=== PATIENT | female | born 1960 | race Caucasian/White ===

== ENCOUNTER 2017-08-27 17:56 | Inpatient (IN) | payer BC ==
[~2017-08-27] VITALS: Ht 177.8 cm; Wt 75.9 kg
--- NOTE | 2017-08-27 18:02 | ED.ADGEN ---
Past History Past Medical History: Bronchitis Past Surgical History: No Surgical History Alcohol Use: None Drug Use: None Adult General Chief Complaint Chief Complaint ".. My back just got all painful the last couple days... I seen Dr. Carr... and she did a couple adjustments.. but it is not any better....".." The pain seems to run down my Rt. ...leg.".. " I really started two weeks ago when I was mowing the yard...".. " I ve also had some interment episodes of chest pain this past week or so..." HPI HPI Patient is a 56 year old female who presents with above hx and complaints of back pain and CP. Chest pain has been interment and usually sharp. Not prolonged. Back Pain seems to be mostly located in Rt. Lumbar L 4,5, Sl area. DTR + 2, to 3 in Rt. leg. Pain does follow the sciatica nerve on Rt. to level of knee. Pt. reports increased discomfort after the two chiropractor adjustments. Pt. denies immunosuppression, specific trauma, fevers or chills, IV drug use, specific ill contacts or out of country travel. Patient denies any problems with defecation or urination. Does have a gait disorder on right due to her pain. Straight leg lift on right exacerbates her pain. Patient rates her pain as moderately severe. Review of Systems Review of Systems Constitutional: Denies fever or chills [] Eyes: Denies change in visual acuity, redness, or eye pain [] HENT: Denies nasal congestion or sore throat [] Respiratory: Denies cough or shortness of breath [] Cardiovascular: No additional information not addressed in HPI [] GI: Denies abdominal pain, nausea, vomiting, bloody stools or diarrhea [] : Denies dysuria or hematuria [] Musculoskeletal: Complaints of back pain . Integument: Denies rash or skin lesions [] Neurologic: Denies headache, focal weakness or sensory changes [] Endocrine: Denies polyuria or polydipsia [] All other systems were reviewed and found to be within normal limits, except as documented in this note. Family History Family History Noncontributory Current Medications Current Medications Current Medications Medications (Trade) Dose Ordered Sig/Bianca Start Time Stop Time Status Last Admin Dose Admin Aspirin (Javid Aspirin) 325 mg 1X ONCE 08/27/17 21:45 08/27/17 22:00 DC 08/27/17 22:21 325 MG Enoxaparin Sodium (Lovenox 80mg Syringe) 80 mg 1X ONCE 08/27/17 21:45 08/27/17 22:00 DC 08/27/17 22:21 80 MG Info (Do NOT chart on this entry -- for MONITORING) 1 each PRN DAILY PRN 08/27/17 20:45 08/29/17 20:44 Iohexol (Omnipaque 300 Mg/ml) 75 ml 1X ONCE 08/27/17 21:00 08/27/17 21:01 DC 08/27/17 21:13 75 ML Ketorolac Tromethamine (Toradol) 60 mg 1X ONCE 08/27/17 19:00 08/27/17 19:01 DC 08/27/17 18:44 60 MG Lactated Ringer's 1,000 ml @ 100 mls/hr Q10H 08/27/17 20:30 08/28/17 06:29 DC 08/27/17 22:21 100 MLS/HR Methylprednisolone Acetate (DEPO-Medrol IM) 40 mg 1X ONCE 08/27/17 19:00 08/27/17 19:01 DC 08/27/17 18:44 40 MG Morphine Sulfate (Morphine 10mg Syringe) 10 mg 1X ONCE 08/27/17 19:00 08/27/17 19:01 DC 08/27/17 18:43 10 MG Morphine Sulfate (Morphine 2mg Syringe) 2 mg PRN Q2HR PRN 08/27/17 22:00 08/28/17 04:59 DC Nicotine (Nicoderm Cq 21mg) 1 patch 1X ONCE 08/27/17 22:30 08/27/17 22:34 DC 08/27/17 22:49 1 PATCH Nitroglycerin (Nitro-Bid Oint) 1 inch 1X ONCE 08/27/17 21:45 08/27/17 22:01 DC 08/27/17 22:22 1 INCH Orphenadrine Citrate (Norflex) 60 mg 1X ONCE 08/27/17 19:00 08/27/17 19:01 DC 08/27/17 18:43 60 MG See nursing for home meds- has been taking excessive doses of ibuprofen Allergies Allergies Allergies Coded Allergies Type Severity Reaction Last Updated Verified No Known Drug Allergies 08/27/17 No Physical Exam Physical Exam Constitutional: Moderately acute distress, non-toxic appearance. [] HENT: Normocephalic, atraumatic, bilateral external ears normal, oropharynx moist, no oral exudates, nose normal. [] Eyes: PERRLA, EOMI, conjunctiva normal, no discharge. [] Neck: Normal range of motion, no tenderness, supple, no stridor. [] Cardiovascular:Bradycardia Heart rate regular rhythm, no murmur [] Lungs & Thorax: Bilateral breath sounds at apex with scattered wheezes on auscultation [] Abdomen: Bowel sounds normal, soft, no tenderness, no masses, no pulsatile masses. [] Skin: Warm, dry, no erythema, no rash. [] Back: No tenderness, no CVA tenderness. Except findings as per history of present illness Extremities: No tenderness, no cyanosis, no clubbing, ROM intact, no edema. [] Neurologic: Alert and oriented X 3, normal motor function, normal sensory function, no focal deficits noted. []Except findings as per history of present illness Psychologic: Affect normal, judgement normal, mood normal. [] Current Patient Data Vital Signs Vital Signs Date Time Temp Pulse Resp B/P (MAP) Pulse Ox O2 Delivery O2 Flow Rate FiO2 08/27/17 23:00 59 16 143/55 (84) 97 Room Air 08/27/17 18:00 98.2 Lab Results Laboratory Tests Test 08/27/17 18:05 08/27/17 20:56 Urine Collection Type Unknown Urine Color Yellow Urine Clarity Clear Urine pH 6.0 Urine Specific [place] 1.010 Urine Protein Neg (NEG-TRACE) Urine Glucose (UA) Neg mg/dL (NEG) Urine Ketones (Stick) Neg mg/dL (NEG) Urine Blood Neg (NEG) Urine Nitrite Neg (NEG) Urine Bilirubin Neg (NEG) Urine Urobilinogen Dipstick 0.2 mg/dL (0.2 mg/dL) Urine Leukocyte Esterase Neg (NEG) Urine RBC 0 /HPF (0-2) Urine WBC Occ /HPF (0-4) Urine Squamous Epithelial Cells Occ /LPF Urine Transitional Epithelial Cells Occ /LPF Urine Bacteria 0 /HPF (0-FEW) Urine Mucus Mod /LPF White Blood Count 9.1 x10^3/uL (4.0-11.0) Red Blood Count 5.57 x10^6/uL (3.50-5.40) H Hemoglobin 14.2 g/dL (12.0-15.5) Hematocrit 43.7 % (36.0-47.0) Mean Corpuscular Volume 78 fL (79-100) L Mean Corpuscular Hemoglobin 26 pg (25-35) Mean Corpuscular Hemoglobin Concent 33 g/dL (31-37) Red Cell Distribution Width 15.1 % (11.5-14.5) H Platelet Count 269 x10^3/uL (140-400) Neutrophils (%) (Auto) 65 % (31-73) Lymphocytes (%) (Auto) 23 % (24-48) L Monocytes (%) (Auto) 6 % (0-9) Eosinophils (%) (Auto) 4 % (0-3) H Basophils (%) (Auto) 2 % (0-3) Neutrophils # (Auto) 5.9 x10^3uL (1.8-7.7) Lymphocytes # (Auto) 2.1 x10^3/uL (1.0-4.8) Monocytes # (Auto) 0.6 x10^3/uL (0.0-1.1) Eosinophils # (Auto) 0.3 x10^3/uL (0.0-0.7) Basophils # (Auto) 0.2 x10^3/uL (0.0-0.2) Prothrombin Time 10.4 SEC (9.4-11.4) Prothrombin Time INR 1.0 (0.9-1.1) PTT 26 SEC (23-33) D-Dimer (Jemma) 0.83 mg/L (0.00-0.50) H Sodium Level 139 mmol/L (136-145) Potassium Level 3.9 mmol/L (3.5-5.1) Chloride Level 104 mmol/L (98-107) Carbon Dioxide Level 26 mmol/L (21-32) Anion Gap 9 (6-14) Blood Urea Nitrogen 11 mg/dL (7-20) Creatinine 0.8 mg/dL (0.6-1.0) Estimated GFR (Cockcroft-Gault) 73.9 Glucose Level 150 mg/dL (70-99) H Calcium Level 8.4 mg/dL (8.5-10.1) L Magnesium Level 2.2 mg/dL (1.8-2.4) Total Bilirubin 0.4 mg/dL (0.2-1.0) Direct Bilirubin 0.1 mg/dL (0.0-0.2) Aspartate Amino Transferase (AST) 13 U/L (15-37) L Alanine Aminotransferase (ALT) 14 U/L (14-59) Alkaline Phosphatase 106 U/L (46-116) Creatine Kinase 68 U/L (26-192) Creatine Kinase MB (Mass) 0.5 ng/mL (0.0-3.6) Creatine Kinase MB Relative Index 0.7 % (0-4) Troponin I Quantitative 0.066 ng/mL (0-0.055) H PN-Gys-R-Type Natriuretic Peptide 589 pg/mL (0-124) H Total Protein 7.0 g/dL (6.4-8.2) Albumin 3.3 g/dL (3.4-5.0) L Lipase 458 U/L (73-393) H EKG EKG My interpretation EKG shows a bradycardic sinus rhythm[] at a rate of 58 bpm. There is some nonspecific anterior lateral changes. No findings acute STEMI of contralateral changes. Radiology/Procedures Radiology/Procedures My interpretation of chest x-ray shows increased cephalization. Some nonspecific atelectasis/elevation left diaphragm. Pleural fluid and infiltrate. On left. [] CT of chest pending at time of admission. Course & Med Decision Making Course & Med Decision Making Pertinent Labs and Imaging studies reviewed. (See chart for details) Discussed presentation, testing and treatment plan with will admit with Consult Cardiology. [] Final Impression Final Impression 1. Back Pain[] 2. Sciatica-right 3. Tobacco use 4. Chest pain 5. Elevated lipase 6. Elevated troponin 7. Elevated d-dimer. 8. CHF elevated BNP 9. Diabetes-glucose 150 Dragon Disclaimer Dragon Disclaimer This electronic medical record was generated, in whole or in part, using a voice recognition dictation system. DARRYL SHEPHERD MD Aug 27, 2017 18:02
[2017-08-27] MEDS ORDERED: sertraline (18:23)
[2017-08-27] MEDS ORDERED: omeprazole (18:24)
[2017-08-27] MEDS ORDERED: atorvastatin (18:24)
[2017-08-27] MEDS ORDERED: methylPREDNISolone ACETATE 40 MG/ML VIAL. IM ONE (19:00)
[2017-08-27] MEDS ORDERED: MORPHINE SULFATE 10 MG/ML SYRINGE. SQ ONE (19:00)
[2017-08-27] MEDS ORDERED: KETOROLAC 60 MG/2 ML VIAL. IM ONE (19:00)
[2017-08-27] MEDS ORDERED: ORPHENADRINE CITRATE 60 MG/2 ML VIAL. IM ONE (19:00)
--- NOTE | 2017-08-27 20:03 | RAD ---
CT of the lumbar spine without contrast, 08/27/2017: HISTORY: Low back pain Noncontrast scans were obtained with multiplanar reconstructions produced. No fracture or dislocation is identified. There are mild posterior disc bulges at L3-4, L4-5 and L5-S1. No disc herniation or significant spinal stenosis is evident. Moderate aortoiliac calcific plaquing is present. Incidental note is made of left-sided pleural fluid. A tiny left renal calcification is noted. IMPRESSION: 1. Mild scattered disc bulges in the lower lumbar spine. 2. No acute lumbar spine abnormality is detected. 3. Left pleural effusion Electronically signed by: Cecil Pace MD (08/27/2017 7:59 PM) [facility]
[2017-08-27] MEDS ORDERED: IV RINGERS SOLUTION,LACTATED 1,000 ML IV SCH (20:30)
[2017-08-27] MEDS ORDERED: CONTRAST GIVEN MC PRN (20:45)
[2017-08-27] MEDS ORDERED: IOHEXOL 300 MG/ML 75 ML VIAL. IV ONE (21:00)
[2017-08-27 21:15] LABS: BASO # 0.2 x10^3/uL (0.0-0.2); BASO % 2 % (0-3); EOS # 0.3 x10^3/uL (0.0-0.7); EOS % 4 % (0-3); HEMATOCRIT 43.7 % (36.0-47.0); HEMOGLOBIN 14.2 g/dL (12.0-15.5); LYMPH # 2.1 x10^3/uL (1.0-4.8); LYMPH % 23 % (24-48); MEAN CORPUSCULAR HEMOGLOBIN 26 pg (25-35); MEAN CORPUSCULAR HGB CONC 33 g/dL (31-37); MEAN CORPUSCULAR VOLUME 78 fL (79-100); MONO # 0.6 x10^3/uL (0.0-1.1); MONO % 6 % (0-9); NEUT # 5.9 x10^3uL (1.8-7.7); NEUT % 65 % (31-73); PLATELET COUNT 269 x10^3/uL (140-400); RED BLOOD COUNT 5.57 x10^6/uL (3.50-5.40); RED CELL DISTRIBUTION WIDTH 15.1 % (11.5-14.5); WHITE BLOOD COUNT 9.1 x10^3/uL (4.0-11.0)
[2017-08-27 21:38] LABS: ALBUMIN 3.3 g/dL (3.4-5.0); CALCIUM 8.4 mg/dL (8.5-10.1); CREATININE 0.8 mg/dL (0.6-1.0); DIRECT BILIRUBIN 0.1 mg/dL (0.0-0.2); GFR 73.9; MAGNESIUM 2.2 mg/dL (1.8-2.4); POTASSIUM 3.9 mmol/L (3.5-5.1); TOTAL BILIRUBIN 0.4 mg/dL (0.2-1.0)
[2017-08-27] MEDS ORDERED: NITROGLYCERIN OINT 1 GM PACKET. TP ONE (21:45)
[2017-08-27] MEDS ORDERED: ENOXAPARIN ** NOTE DOSE ** SYRINGE SQ ONE (21:45)
[2017-08-27] MEDS ORDERED: ASPIRIN 325 MG TABLET PO ONE (21:45)
--- NOTE | 2017-08-27 21:56 | RAD ---
CTA chest with contrast Indication: Omni 300, 75ml IV. Chest pain, smoker x30+ years. No injury or surgery . Comparison: No comparison is available. Technique: After intravenous contrast administration, CT imaging was performed of the chest. MIP reconstructions were obtained. Exposure: One or more of the following individualized dose reduction techniques were utilized for this examination: 1. Automated exposure control 2. Adjustment of the mA and/or kV according to patient size 3. Use of iterative reconstruction technique. FINDINGS: Pulmonary arteries:No evidence of pulmonary embolism. Thoracic aorta: Mildly calcified, no aneurysm. No evidence of dissection. Thyroid gland:Visualized aspect is unremarkable. Lymph nodes:No significant enlargement Heart: Mild coronary artery calcifications Esophagus: Unremarkable Pleural spaces: Small left pleural effusion. Lungs: Linear markings in the left upper lobe and lingula, likely atelectasis. No dense airspace consolidating infiltrate. Mild atelectasis or infiltrate in the dependent left lower lobe as well. Mild emphysematous changes are seen. Trachea and central airways: Patent Bones: Degenerative spondylosis Upper abdomen: Slices through the upper abdomen are limited due to the technique . There is reflux of contrast into the hepatic veins and inferior vena cava, could indicate right heart strain. IMPRESSION: 1. Mild atelectasis or infiltrate in the left lung. 2. No evidence of pulmonary embolism. Electronically signed by: Balaji Baker MD (08/27/2017 9:53 PM) [facility]
[2017-08-27] MEDS ORDERED: MORPHINE SULFATE 2 MG/ML DISP.SYRIN. IV PRN (22:00)
[2017-08-27 22:24] LABS: BACTERIA,URINE 0 /HPF (0-FEW); BILIRUBIN,URINE NEG (NEG); CLARITY,URINE CLEAR; COLOR,URINE YELLOW; GLUCOSE,URINE NEG (NEG); NITRITE,URINE NEG (NEG); RBC,URINE 0 /HPF (0-2); SQUAMOUS EPITHELIAL CELL,UR OCC /LPF; UROBILINOGEN,URINE 0.2 mg/dL (0.2 mg/dL); WBC,URINE OCC /HPF (0-4)
[2017-08-27] MEDS ORDERED: NICOTINE 21MG PATCH. TD ONE (22:30)
--- NOTE | 2017-08-27 23:23 | EKG ---
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
[2017-08-27 23:30] VITALS: BP 169/91
--- NOTE | 2017-08-27 23:30 | NUR ---
Pt was admitted from ER to [address] [place] [address] via [facility], accompanied by EMS, nursing staff and . Pt self transferred from [facility] to bed independently, steady gait noted. Admission assessment completed. VSS. Pt placed on Telemetry, SR noted on monitor. Pt here for Sciatic pain symptoms in right hip/leg and chest pain. Pt stated that pain is much improved, rating it a 2/10. Health history and home medications reviewed with pt. Lovenox for VTE. Pt refused pneumonia vaccine. Cardio consulted and with RT for smoking cessation. Pt lives at home with . Pt recently increased her work hours at [employer] from 20 hours to 40 hours per week. Pt was given written information regarding hospital policies, unit procedures and contact persons. Valuables were checked and left at bedside. Pt to have Venous Doppler in am. Call light within reach.
[2017-08-28] MEDS ORDERED: OMEP20CA9 PO (01:12)
[2017-08-28] MEDS ORDERED: SERT100T8 PO (01:12)
[2017-08-28] MEDS ORDERED: ATOR20TA58 PO (01:12)
[2017-08-28] MEDS ORDERED: IBUP200T44 PO (01:12)
[2017-08-28] MEDS: MORPHINE SULFATE 4 MG/ML DISP.SYRIN. IV PRN ×5 (05:03→20:10)
[2017-08-28 05:34] VITALS: BP 154/69
[2017-08-28 07:13] LABS: BASO # 0.1 x10^3/uL (0.0-0.2); BASO % 1 % (0-3); EOS # 0.4 x10^3/uL (0.0-0.7); EOS % 5 % (0-3); HEMATOCRIT 40.2 % (36.0-47.0); HEMOGLOBIN 13.2 g/dL (12.0-15.5); LYMPH # 2.1 x10^3/uL (1.0-4.8); LYMPH % 27 % (24-48); MEAN CORPUSCULAR HEMOGLOBIN 26 pg (25-35); MEAN CORPUSCULAR HGB CONC 33 g/dL (31-37); MEAN CORPUSCULAR VOLUME 79 fL (79-100); MONO # 0.6 x10^3/uL (0.0-1.1); MONO % 7 % (0-9); NEUT # 4.7 x10^3uL (1.8-7.7); NEUT % 60 % (31-73); PLATELET COUNT 219 x10^3/uL (140-400); RED BLOOD COUNT 5.08 x10^6/uL (3.50-5.40); RED CELL DISTRIBUTION WIDTH 15.1 % (11.5-14.5); WHITE BLOOD COUNT 7.8 x10^3/uL (4.0-11.0)
[2017-08-28 07:29] LABS: CALCIUM 8.3 mg/dL (8.5-10.1); CREATININE 0.6 mg/dL (0.6-1.0); POTASSIUM 3.6 mmol/L (3.5-5.1)
--- NOTE | 2017-08-28 08:34 | RAD ---
Chest, 2 views, 08/27/2017: HISTORY: Chest pain, smoking history Comparison is made to a study from 08/22/2011. The heart size and pulmonary vascularity are normal. A small amount of pleural fluid has developed in the left lower chest. There is mild underlying streaky atelectasis in the left base and lingula. The right lung is clear. No right-sided pleural fluid is evident. Mild spurring is present in the spine. IMPRESSION: Small left pleural effusion with mild streaky atelectasis in the left base and lingula. Electronically signed by: Cecil Pace MD (08/28/2017 8:30 AM) [facility]
[2017-08-28] MEDS: ENOXAPARIN ** NOTE DOSE ** SYRINGE SQ SCH ×2 (08:55→20:54)
[2017-08-28] MEDS: NITROGLYCERIN OINT 1 GM PACKET. TP SCH ×3 (08:57→19:50)
[2017-08-28 10:01] LABS: THYROID STIM HORMONE (TSH) 3.694 uIU/mL (0.358-3.740)
[2017-08-28] MEDS: ASPIRIN 81 MG TAB.CHEW PO SCH (10:57)
[2017-08-28 11:00] VITALS: BP 162/72
--- NOTE | 2017-08-28 11:05 | RAD ---
Bilateral lower extremity venous ultrasound, 08/28/2017: History: Elevated d-dimer Duplex evaluation of the deep veins in the lower extremities was performed including grayscale, color-flow and spectral Doppler analysis. The femoral and popliteal veins demonstrate normal compressibility and normal responses to distal augmentation maneuvers. Color imaging of those vessels shows no evidence of intraluminal clot. The visualized deep veins in both calves are patent. IMPRESSION: There is no sonographic evidence of deep vein thrombosis in either lower extremity. Electronically signed by: Cecil Pace MD (08/28/2017 11:02 AM) [facility]
--- NOTE | 2017-08-28 11:10 | RAD ---
Abdominal ultrasound, 08/28/2017: HISTORY: Elevated liver enzymes The gallbladder is of normal size. No gallstones are seen. The gallbladder wall is not thickened. The common hepatic duct is of normal caliber. The liver is at the upper limits of normal in size measuring 18-19 cm in craniocaudad extent. There is no evidence of a hepatic mass. The visualized portions of the pancreas are unremarkable. The spleen is of normal size. A tiny 6 mm echogenic focus is noted laterally in the left kidney. No definite posterior acoustic shadowing is seen. This may be a scar or tiny angiomyolipoma. The kidneys are otherwise unremarkable. The abdominal aorta is of normal caliber. The visualized portions of the inferior vena cava are unremarkable. No free fluid is evident in the abdomen. A small left pleural effusion is noted. IMPRESSION: 1. Borderline hepatomegaly. 2. Tiny echogenic focus in the left kidney which may be a scar or a small angiomyolipoma. 3. Small left pleural effusion. Electronically signed by: Cecil Pace MD (08/28/2017 11:07 AM) [facility]
[2017-08-28 15:29] VITALS: BP 148/73
[2017-08-28] MEDS ORDERED: NICOTINE 21MG PATCH. TD PRN (19:30)
[2017-08-28 19:45] VITALS: BP 156/74
[2017-08-28 23:01] VITALS: BP 155/82
[2017-08-28] MEDS ORDERED: MORPHINE SULFATE 2 MG/ML DISP.SYRIN. IV PRN (23:15)
[2017-08-29] MEDS ORDERED: MORPHINE SULFATE 4 MG/ML DISP.SYRIN. ONE (00:12)
--- NOTE | 2017-08-29 00:57 | HP ---
ADMIT DATE: 08/27/2017 HISTORY OF PRESENT ILLNESS: The patient is a 56-year-old female patient who basically came to the Emergency Room complaining of back pain that has been going on for almost 3 weeks, has worsened over the last 2 days. She has seen chiropractor who did a couple of adjustments, but she is not feeling any better. She stated that her pain is running down her right leg and her pain started about 2 weeks ago when she was mowing her yard. She also complained of intermittent episodes of chest pain in the past week. She was seen in the Emergency Room and evaluated her back pain and chest pain. Apparently, her chest pain is last about 5 minutes, sharp, associated with shortness of breath, but no nausea, no vomiting. The patient also stated that she has lost about unintentionally 50 pounds in weight. She was extensively investigated in the Emergency Room. Her EKG showed that she has sinus bradycardia with a rate of 58. She has nonspecific anterolateral changes, but no evidence of acute ST segment elevation myocardial infarction. Her chest x-ray showed that she has small left pleural effusion with mild streaky atelectasis in the left base in the lingula. As her D-dimer was high, she underwent CT angio of the chest, which basically showed that no evidence of pulmonary embolism, thoracic aorta mildly calcified, no aneurysm, no evidence of dissection, basically showed the patient has mild atelectasis and infiltrate in the left lung, no evidence of pulmonary embolism. Her first set of cardiac enzyme was high at 0.66. She was admitted to do 2 more sets of cardiac enzymes, check her fasting lipid profile and also consult the cardiology team. PAST MEDICAL HISTORY: Significant for hyperlipidemia, osteoarthritis and degenerative disk disease. PAST SURGICAL HISTORY: Significant for hemorrhoidectomy, trigger fingers in her right thumb and colonoscopy. ALLERGIES: She has no known drug allergies. MEDICATIONS: She is on atorvastatin calcium 20 mg at bedtime, ibuprofen 600 mg 3 times a day, sertraline 200 mg daily and omeprazole 20 mg once a day. FAMILY HISTORY: She has 2 sisters younger and healthy. Her father is still alive at age of 73 and has COPD, and mother is alive at age of 72 and she is known to have congestive heart failure and has AICD. SOCIAL HISTORY: She is , has no children. She smokes 2 packs a day, does not drink alcohol. She is retired from [employer] and she now works at [employer]. REVIEW OF SYSTEMS: The patient denied any blurring of vision, cataract, glaucoma or macular degeneration. Denied any earache, tinnitus or sensorineural deafness. Denied any nosebleeds, stuffy nose or postnasal drip. Denied any sore throat, sore tongue, toothache, hoarseness of voice or difficulty swallowing. Denied any nausea, vomiting, diarrhea or constipation. Denied any hematemesis, melena or hematochezia. Denied any dysuria, frequency or hematuria. Did complain of chest pain, shortness of breath, but denied any nausea or vomiting. Denied any diaphoresis, denied any orthopnea or paroxysmal nocturnal dyspnea. Denied any cough, phlegm or hemoptysis. Denied any chills, rigors, or fever. Denied any dizziness, lightheadedness, or vertigo. PHYSICAL EXAMINATION: GENERAL: On arrival to the Emergency Room, she was pale, but no jaundice, cyanosis, or thyromegaly. No jugular venous distention. No limb edema. VITAL SIGNS: Her heart rate was 69, blood pressure 159/88, temperature was 98.2, respiratory rate was 18 and oxygen saturation was 97%. HEAD, EYES, EARS, NOSE AND THROAT: Showed normocephalic, atraumatic. NECK: Supple. HEART: Showed normal first and second sounds. No gallop or murmur. CHEST: Clear to auscultation. No crepitation or rhonchi. ABDOMEN: Distended, soft, nontender. NEUROLOGIC: She was awake, alert. All her cranial nerves intact. EXTREMITIES: She moves upper extremities without difficulty. She has difficulty walking as putting weight on the right lower extremity exacerbates her pain on the right side at the lower lumbar area; however, she denied any problems urinating or retaining urine. Denied any problem with defecation. LABORATORY DATA: While in the Emergency Room, she had lab work done, which includes serum sodium 139, potassium 3.9, chloride 104, bicarbonate 26, anion gap of 9, BUN 11, creatinine 0.8, estimated GFR was 74 mL per minute. Her glucose 150, calcium was 8.4, magnesium was 2.2. Total bilirubin, AST, ALT, alkaline phosphatase were normal. Her beta natriuretic peptide was 589. Total protein 7, albumin was 3.3. Her first set of cardiac enzymes showed troponin to be 0.066. Her serum lipase was 458. Serum triglycerides 168, total cholesterol was 208, LDL was 114, VLDL was 33, non-HDL was 146, and HDL 61 and the ratio was 3. Her white cell count was 9100, hemoglobin 14, hematocrit 44, MCV 78 and platelet count 269,000. Her prothrombin time was 10.4, INR of 1, aPTT was 26. D-dimer was 0.83. Urinalysis showed the urine was yellow, clear with a pH of 6, specific gravity 1.010. The urine was negative for protein, glucose, ketones, blood, nitrite and leukocyte esterase. There are no rbc's, occasional wbc's, and very few bacteria. X-ray of her lumbar spine showed that patient has mild scattered disk bulges in the lower lumbar spine, no acute lumbar spine abnormalities detected. Her chest x-ray showed that the heart size and pulmonary vascularity are normal. There is small left-sided pleural effusion with mild streaky atelectasis in the left base lingula. CT angio of the chest showed that there is no atelectasis or infiltrate in the left lung. No evidence of pulmonary embolism. The bilateral lower extremity venous Doppler ultrasound showed no evidence of deep vein thrombosis. Abdominal ultrasound was done for elevated liver enzymes and showed that she has borderline hepatomegaly, tiny echogenic focus in the left kidney, which may be a scar or small angiomyolipoma. She has also small left-sided pleural effusion. IMPRESSION AND PLAN: In summary, this is a 56-year-old female patient who came in primarily complaining the back pain, but she also complained intermittent chest pain. Her troponin was slightly elevated. She was admitted to do 2 more sets of cardiac enzyme and to check her fasting lipid profile and consult the cardiology team. GLEN LLANES MD DR: BRENNEN/delfino JOB#: [id number] / [id number]
[2017-08-29 06:00] VITALS: BP 160/74
[2017-08-29 06:50] LABS: CALCIUM 8.9 mg/dL (8.5-10.1); CREATININE 0.6 mg/dL (0.6-1.0); POTASSIUM 3.9 mmol/L (3.5-5.1)
[2017-08-29] MEDS: NITROGLYCERIN OINT 1 GM PACKET. TP SCH (09:00)
--- NOTE | 2017-08-29 09:26 | PDOC2 ---
CONSULT Date of Admission DATE: 08/29/17 TIME: 09:23 Reason for Consult: Chest pain, elevated troponin Problem List Problems Medical Problems: (1) Chest pain Status: Acute History of Present Illness Ms Bryan is a 56 year old female who presented to the ED with complaints of low back pain. She states that she had been mowing her grass and thinks she somehow injured her back. Yesterday the pain was severe and she reports inability to get up out of bed so she presented for evaluation. She was noted to have significant blood pressure elevation and mild troponin elevation. she reports several days ago two episodes of chest pain while at work. Pain was right chest, sharp stabbing with associated dyspnea and lasted about 1-2 minutes. Onset was while doing light activity. She denies any prior chest pain. She denies other dyspnea. She denies palpitations, lightheadedness or syncope. She denies problems with functional capacity until the low back pain. Past Medical History Significant for hyperlipidemia, osteoarthritis, GERD and degenerative disk disease. Past Surgical History Significant for hemorrhoidectomy, trigger fingers in her right thumb and colonoscopy. Family History She has 2 sisters younger and healthy. Her father is still alive at age of 73 and has COPD, and mother is alive at age of 72 and she is known to have congestive heart failure and has AICD secondary to VT/VF arrest reportedly due to heart defect. . Social History She is , has no children. She smokes 2 packs a day, does not drink alcohol. She is retired from [employer] and she now works at [employer]. Current Medications Current Medications Ketorolac Tromethamine (Toradol) 60 mg 1X ONCE IM Last administered on at 18:44; Start 08/27/17 at 19:00; Stop 08/27/17 at 19:01; Status DC Orphenadrine Citrate (Norflex) 60 mg 1X ONCE IM Last administered on 08/27/17at 18:43; Start 08/27/17 at 19:00; Stop 08/27/17 at 19:01; Status DC Morphine Sulfate (Morphine 10mg Syringe) 10 mg 1X ONCE SQ Last administered on 08/27/17at 18:43; Start 08/27/17 at 19:00; Stop 08/27/17 at 19:01; Status DC Methylprednisolone Acetate (DEPO-Medrol IM) 40 mg 1X ONCE IM Last administered on 08/27/17at 18:44; Start 08/27/17 at 19:00; Stop 08/27/17 at 19:01; Status DC Lactated Ringer's 1,000 ml @ 100 mls/hr Q10H IV Last administered on 08/27/17at 22:21; Start 08/27/17 at 20:30; Stop 08/28/17 at 06:29; Status DC Iohexol (Omnipaque 300 Mg/ml) 75 ml 1X ONCE IV Last administered on 08/27/17at 21:13; Start 08/27/17 at 21:00; Stop 08/27/17 at 21:01; Status DC Info (Do NOT chart on this entry -- for MONITORING) 1 each PRN DAILY PRN MC SEE COMMENTS; Start 08/27/17 at 20:45; Stop 08/29/17 at 20:44 Enoxaparin Sodium (Lovenox 80mg Syringe) 80 mg 1X ONCE SQ Last administered on 08/27/17at 22:21; Start 08/27/17 at 21:45; Stop 08/27/17 at 22:00; Status DC Aspirin (Javid Aspirin) 325 mg 1X ONCE PO Last administered on 08/27/17at 22:21 ; Start 08/27/17 at 21:45; Stop 08/27/17 at 22:00; Status DC Nitroglycerin (Nitro-Bid Oint) 1 inch 1X ONCE TP Last administered on at 22:22; Start 08/27/17 at 21:45; Stop 08/27/17 at 22:01; Status DC Morphine Sulfate (Morphine 2mg Syringe) 2 mg PRN Q2HR PRN IV PAIN; Start at 22:00; Stop 08/28/17 at 04:59; Status DC Aspirin (Children'S Aspirin) 81 mg DAILY08 PO Last administered on 08/28/17at 10 :57; Start 08/28/17 at 08:00 Enoxaparin Sodium (Lovenox 80mg Syringe) 80 mg BID SQ Last administered on 08/28at 20:54; Start 08/28/17 at 09:00 Nitroglycerin (Nitro-Bid Oint) 1 inch TID TP ; Start 08/28/17 at 09:00 Nicotine (Nicoderm Cq 21mg) 1 patch 1X ONCE TD Last administered on 08/27/17at 22:49; Start 08/27/17 at 22:30; Stop 08/27/17 at 22:34; Status DC Morphine Sulfate (Morphine 4mg Syringe) 2 mg PRN Q2HR PRN IV PAIN Last administered on 08/28/17at 20:10; Start 08/28/17 at 04:59; Stop 08/28/17 at 22:00 ; Status DC Nicotine (Nicoderm Cq 21mg) 1 patch PRN DAILY PRN TD SMOKING CESSATION Last administered on 08/28/17at 20:07; Start 08/28/17 at 19:30 Morphine Sulfate (Morphine 2mg Syringe) 2 mg PRN Q2HR PRN IV PAIN Last administered on 08/29/17at 00:15; Start 08/28/17 at 23:15; Stop 08/29/17 at 00:58 ; Status DC Morphine Sulfate (Morphine 4mg Syringe) 4 mg STK-MED ONCE .ROUTE ; Start at 00:12; Stop 08/29/17 at 00:13; Status DC Morphine Sulfate (Morphine 4mg Syringe) 2 mg PRN Q2HR PRN IV PAIN; Start at 01:00 Active Scripts Active Reported Motrin Ib (Ibuprofen) 200 Mg Tablet 600 Mg PO PRN TID PRN LAST DOSE GIVEN: DATE: TIME: NEXT DOSE DUE: DATE: TIME: Atorvastatin Calcium 20 Mg Tablet 20 Mg PO DAILY LAST DOSE GIVEN: DATE: TIME: NEXT DOSE DUE: DATE: TIME: Omeprazole 20 Mg Capsule.dr 20 Mg PO DAILY LAST DOSE GIVEN: DATE: TIME: NEXT DOSE DUE: DATE: TIME: Sertraline Hcl 100 Mg Tablet 200 Mg PO DAILY LAST DOSE GIVEN: DATE: TIME: NEXT DOSE DUE: DATE: TIME: Allergies: Coded Allergies: No Known Drug Allergies (Unverified , 08/27/17) Review of System as per HPI or negative General: Alert, Oriented X3, Cooperative, No acute distress HEENT: Atraumatic, EOMI, Mucous membr. moist/pink Lungs: Clear to auscultation, Normal air movement Heart: Regular rate, Normal S1, Normal S2, Other (no gallops, clicks or rubs) Abdomen: Normal bowel sounds, Soft, No tenderness Extremities: No cyanosis, No edema, Normal pulses Neuro: Normal speech Psych/Mental Status: Mental status NL, Mood NL VITALS Vital Signs Date Time Temp Pulse Resp B/P (MAP) Pulse Ox O2 Delivery O2 Flow Rate FiO2 08/29/17 06:00 98.1 56 18 160/74 (102) 92 Room Air Labs Laboratory Tests Test 08/27/17 18:05 08/27/17 20:56 08/28/17 06:40 08/28/17 16:15 Urine Collection Type Unknown Urine Color Yellow Urine Clarity Clear Urine pH 6.0 Urine Specific [place] 1.010 Urine Protein Neg (NEG-TRACE) Urine Glucose (UA) Neg mg/dL (NEG) Urine Ketones (Stick) Neg mg/dL (NEG) Urine Blood Neg (NEG) Urine Nitrite Neg (NEG) Urine Bilirubin Neg (NEG) Urine Urobilinogen Dipstick 0.2 mg/dL (0.2 mg/dL) Urine Leukocyte Esterase Neg (NEG) Urine RBC 0 /HPF (0-2) Urine WBC Occ /HPF (0-4) Urine Squamous Epithelial Cells Occ /LPF Urine Transitional Epithelial Cells Occ /LPF Urine Bacteria 0 /HPF (0-FEW) Urine Mucus Mod /LPF White Blood Count 9.1 x10^3/uL (4.0-11.0) 7.8 x10^3/uL (4.0-11.0) Red Blood Count 5.57 x10^6/uL (3.50-5.40) 5.08 x10^6/uL (3.50-5.40) Hemoglobin 14.2 g/dL (12.0-15.5) 13.2 g/dL (12.0-15.5) Hematocrit 43.7 % (36.0-47.0) 40.2 % (36.0-47.0) Mean Corpuscular Volume 78 fL (79-100) 79 fL (79-100) Mean Corpuscular Hemoglobin 26 pg (25-35) 26 pg (25-35) Mean Corpuscular Hemoglobin Concent 33 g/dL (31-37) 33 g/dL (31-37) Red Cell Distribution Width 15.1 % (11.5-14.5) 15.1 % (11.5-14.5) Platelet Count 269 x10^3/uL (140-400) 219 x10^3/uL (140-400) Neutrophils (%) (Auto) 65 % (31-73) 60 % (31-73) Lymphocytes (%) (Auto) 23 % (24-48) 27 % (24-48) Monocytes (%) (Auto) 6 % (0-9) 7 % (0-9) Eosinophils (%) (Auto) 4 % (0-3) 5 % (0-3) Basophils (%) (Auto) 2 % (0-3) 1 % (0-3) Neutrophils # (Auto) 5.9 x10^3uL (1.8-7.7) 4.7 x10^3uL (1.8-7.7) Lymphocytes # (Auto) 2.1 x10^3/uL (1.0-4.8) 2.1 x10^3/uL (1.0-4.8) Monocytes # (Auto) 0.6 x10^3/uL (0.0-1.1) 0.6 x10^3/uL (0.0-1.1) Eosinophils # (Auto) 0.3 x10^3/uL (0.0-0.7) 0.4 x10^3/uL (0.0-0.7) Basophils # (Auto) 0.2 x10^3/uL (0.0-0.2) 0.1 x10^3/uL (0.0-0.2) Prothrombin Time 10.4 SEC (9.4-11.4) Prothromb Time International Ratio 1.0 (0.9-1.1) Activated Partial Thromboplast Time 26 SEC (23-33) D-Dimer (Jemma) 0.83 mg/L (0.00-0.50) Sodium Level 139 mmol/L (136-145) 140 mmol/L (136-145) Potassium Level 3.9 mmol/L (3.5-5.1) 3.6 mmol/L (3.5-5.1) Chloride Level 104 mmol/L (98-107) 106 mmol/L (98-107) Carbon Dioxide Level 26 mmol/L (21-32) 24 mmol/L (21-32) Anion Gap 9 (6-14) 10 (6-14) Blood Urea Nitrogen 11 mg/dL (7-20) 12 mg/dL (7-20) Creatinine 0.8 mg/dL (0.6-1.0) 0.6 mg/dL (0.6-1.0) Estimated GFR (Cockcroft-Gault) 73.9 103.0 Glucose Level 150 mg/dL (70-99) 93 mg/dL (70-99) Calcium Level 8.4 mg/dL (8.5-10.1) 8.3 mg/dL (8.5-10.1) Magnesium Level 2.2 mg/dL (1.8-2.4) Total Bilirubin 0.4 mg/dL (0.2-1.0) Direct Bilirubin 0.1 mg/dL (0.0-0.2) Aspartate Amino Transf (AST/SGOT) 13 U/L (15-37) Alanine Aminotransferase (ALT/SGPT) 14 U/L (14-59) Alkaline Phosphatase 106 U/L (46-116) Creatine Kinase 68 U/L (26-192) Creatine Kinase MB (Mass) 0.5 ng/mL (0.0-3.6) Creatine Kinase MB Relative Index 0.7 % (0-4) Troponin I Quantitative 0.066 ng/mL (0-0.055) 0.058 ng/mL (0-0.055) 0.054 ng/mL (0-0.055) CS-Rzs-U-Type Natriuretic Peptide 589 pg/mL (0-124) Total Protein 7.0 g/dL (6.4-8.2) Albumin 3.3 g/dL (3.4-5.0) Triglycerides Level 168 mg/dL (0-150) Cholesterol Level 208 mg/dL (0-200) LDL Cholesterol, Calculated 114 mg/dL (0-100) VLDL Cholesterol, Calculated 33 mg/dL (0-40) Non-HDL Cholesterol Calculated 147 mg/dL (0-129) HDL Cholesterol 61 mg/dL (40-60) Cholesterol/HDL Ratio 3.0 Lipase 458 U/L (73-393) 180 U/L (73-393) Thyroid Stimulating Hormone (TSH) 3.694 uIU/mL (0.358-3.740) Test 08/29/17 06:00 Sodium Level 139 mmol/L (136-145) Potassium Level 3.9 mmol/L (3.5-5.1) Chloride Level 103 mmol/L (98-107) Carbon Dioxide Level 29 mmol/L (21-32) Anion Gap 7 (6-14) Blood Urea Nitrogen 11 mg/dL (7-20) Creatinine 0.6 mg/dL (0.6-1.0) Estimated GFR (Cockcroft-Gault) 103.0 Glucose Level 94 mg/dL (70-99) Calcium Level 8.9 mg/dL (8.5-10.1) Lipase 192 U/L (73-393) Images EKG - sinus rhythm, no acute ischemic abnormalities. Assessment/Plan 1. Chest pain, atypical - remains chest pain free since admission. 2. Mildly elevated troponin in the setting of uncontrolled hypertension - no acute echo changes. MPI as outpatient. May schedule in am if she is not discharged today. 3. accelerated hypertension - likely secondary to pain - pressures well controlled now. Check echocardiogram. 4. hyperlipidemia - check lipids. CAMRYN IZQUIERDO APRN Aug 29, 2017 09:26
[2017-08-29] MEDS: MORPHINE SULFATE 4 MG/ML DISP.SYRIN. IV PRN ×3 (09:52→20:27)
[2017-08-29] MEDS: ENOXAPARIN ** NOTE DOSE ** SYRINGE SQ SCH (10:20)
[2017-08-29] MEDS: ASPIRIN 81 MG TAB.CHEW PO SCH (10:21)
[2017-08-29 11:00] VITALS: BP 139/80
--- NOTE | 2017-08-29 12:38 | PN ---
DATE: 08/28/2017 SUBJECTIVE: Ms. Bryan is resting slightly propped up, still complaining of severe back pain that radiates down her right gluteal and thigh area posteriorly, aggravated by movement, coughing and straining. She stated she has had multiple intermittent episodes of chest pain, associated with shortness of breath but no nausea or vomiting. She denied any further episodes of chest pain today. PHYSICAL EXAMINATION: GENERAL: When I examined her; however, she looked well and was clearly in no apparent respiratory distress, pale, but no jaundice, cyanosis, or thyromegaly. No jugular venous distention. No limb edema. VITAL SIGNS: Her heart rate was 67, blood pressure 148/73, temperature was 98, respiratory rate was 18 and oxygen saturation was 95% on room air. HEAD, EYES, EARS, NOSE AND THROAT: Showed normocephalic, atraumatic. NECK: Supple. HEART: Showed normal first and second sounds. No gallop, rub or murmur. CHEST: Clear to auscultation. No crepitation or rhonchi. ABDOMEN: Distended, soft, nontender. NEUROLOGIC: She is awake, alert, responding appropriately. Cranial nerves are intact. She moves upper extremities without difficulty. She has difficulty walking when she puts weight on her right lower extremity, the pain is aggravated in her right lower lumbar area. Her intake was 1200, output was 450. LABORATORY DATA: This morning showed a serum sodium of 140, potassium 3.6, chloride 106, bicarbonate 24, anion gap of 10, BUN 12, creatinine 0.6, estimated GFR was 103 mL per minute. Her glucose was 93, calcium was 8.3. Her serum triglycerides were high at 168, total cholesterol was 208, LDL was 114, VLDL was 33, non-HDL cholesterol was 147 and HDL cholesterol was 61 and the ratio was 3. PLAN: My plan is to repeat another cardiac enzyme. Her serum lipase was high also. So, I will arrange for that. We have already consulted the paint grinder and if a decision was made to be transferred to [facility], we would also consult the neurosurgeon there. GLEN LLANES MD DR: BRENNEN/delfino JOB#: [id number] / [id number]
[2017-08-29 15:00] VITALS: BP_SYST 135; BP_SYST 137; BP_DIAS 76; BP_DIAS 84
--- NOTE | 2017-08-29 16:10 | CARD ---
MR#: [id number] Date of Study: 08/29/2017 Ordering Physician: CAMRYN IZQUIERDO, Referring Physician: GLEN LLANES Tech: ROBERT Chang APPROVED REPORT EXAM: Two-dimensional and M-mode echocardiogram with Doppler and color Doppler. Other Information Quality : AverageHR: 69bpm INDICATION Chest Pain Elevated Troponin 2D DIMENSIONS RVDd3.2 (2.9-3.5cm)Left Atrium(2D)3.2 (1.6-4.0cm) IVSd1.3 (0.7-1.1cm)Aortic Root(2D)2.8 (2.0-3.7cm) LVDd4.5 (3.9-5.9cm)LVOT Diameter2.2 (1.8-2.4cm) PWd1.3 (0.7-1.1cm)LVDs3.2 (2.5-4.0cm) FS (%) 29.8 %SV53.0 ml LVEF(%)57.0 (>50%) Aortic Valve AoV Peak Moris.139.6cm/sAoV VTI29.4cm AO Peak GR.7.8mmHgLVOT Peak Moris.126.6cm/s LVOT VTI 28.84cmAO Mean GR.4mmHg JESÚS (VMAX)3.95it5ZEV (VTI)3.64cm2 Mitral Valve MV E Ayxemsix26.0cm/sMV DECEL [id number] MV A Ywtikxzt99.5cm/sE/A Ratio1.0 Pulmonary Valve PV Peak Ieyerklp20.9cm/sPV Peak Grad.4mmHg Tricuspid Valve TR P. Agxlpncw035sq/sRAP [id number] TR Peak Gr.96gmUoLDZL82xjUk Pulmonary Vein S1 Fmwfhcje98.9cm/sD2 Uendidwk22.8cm/s LEFT VENTRICLE The left ventricle is normal size. There is mild concentric left ventricular hypertrophy. The left ve ntricular systolic function is normal and the ejection fraction is within normal range. Left ventricu lar ejection fraction is 55-60%. There is normal LV segmental wall motion. The left ventricular diast olic function and filling is normal for age. RIGHT VENTRICLE The right ventricle is normal size. The right ventricular systolic function is normal. ATRIA The left atrium size is normal. The right atrium size is normal. The interatrial septum is intact wit h no evidence for an atrial septal defect or patent foramen ovale as noted on 2-D or Doppler imaging. AORTIC VALVE The aortic valve is thickened but opens well. Doppler and Color Flow revealed no significant aortic r egurgitation. There is no significant aortic valvular stenosis. There is no aortic valvular vegetatio n. MITRAL VALVE The mitral valve is thickened but opens well. There is no evidence of mitral valve prolapse. There is no mitral valve stenosis. Doppler and Color Flow revealed no mitral valve regurgitation noted. TRICUSPID VALVE The tricuspid valve is not well visualized. Doppler and Color Flow revealed trace to mild tricuspid r egurgitation. The PA pressure was estimated at 30 mmHg. There is no tricuspid valve stenosis. PULMONIC VALVE The pulmonic valve is not well visualized. Doppler and Color Flow revealed trace to mild pulmonic sapphire vular regurgitation. There is no pulmonic valvular stenosis. GREAT VESSELS The aortic root is normal in size. The IVC is dilated. The IVC collapses <50% with inspiration. PERICARDIAL EFFUSION There is no pleural effusion. There is no evidence of significant pericardial effusion. Critical Notification Critical Value: No <Conclusion> The left ventricle is normal size. The left ventricular systolic function is normal and the ejection fraction is within normal range. Left ventricular ejection fraction is 55-60%. There is mild concentric left ventricular hypertrophy. There is no significant aortic valvular stenosis. Doppler and Color Flow revealed no significant aortic regurgitation. Doppler and Color Flow revealed no mitral valve regurgitation noted. Doppler and Color Flow revealed trace to mild tricuspid regurgitation. The PA pressure was estimated at 30 mmHg. Signed by : Hema Enriquez MD Electronically Approved : 08/29/2017 16:09:56
[2017-08-29 20:11] VITALS: BP 133/80
[2017-08-29 23:50] VITALS: BP 128/70
--- NOTE | 2017-08-30 01:02 | PN ---
DATE: 08/29/2017 SUBJECTIVE: The patient is sitting in the edge of the bed, in no apparent respiratory distress. She continued to complain of low back pain, has no further episode of chest pain. The Cardiology team has seen her. They recommended an echocardiogram and a nuclear stress test. Given that she has back pain, would not be to participate in exercise stress test. OBJECTIVE: GENERAL: On examining her today, she looked well and was clearly in no apparent respiratory distress. No pallor, jaundice, cyanosis, lymphadenopathy or thyromegaly. No jugular venous distension. No lower limb edema. VITAL SIGNS: Her heart rate was 56, blood pressure 160/74, temperature 98.1, respiratory rate was 18, and oxygen saturation was 92%. HEAD, EYES, EARS, NOSE AND THROAT: Normocephalic, atraumatic. NECK: Supple. HEART: Showed normal first and second sounds. No gallop, rub or murmur. CHEST: Clear to auscultation. No crepitation or rhonchi. ABDOMEN: Distended, soft, nontender. NEUROLOGIC: She was awake, alert, responding appropriately. Cranial nerves intact. She moves all extremities; however, she does have difficulty walking when she puts weight on her right lower extremity, her back pain gets really aggravated. LABORATORY DATA: Showed a white cell count of 7800, hemoglobin 13, hematocrit 40, MCV 79 and platelet count 219,000. She has had 3 sets of cardiac enzymes that are all elevated, although trending down. Her serum sodium this morning was 139, potassium 3.9, chloride 103, bicarbonate 29, anion gap of 7, BUN 11, creatinine 0.6, estimated GFR was 103 mL per minute. Her glucose was 94, calcium was 8.9. Her lipase was normal. ASSESSMENT: Chest pain which is mostly atypical. She has 3 sets of cardiac enzymes that are slightly elevated. Hypertension, hyperlipidemia, severe low back pain which seems to be some form of right lumbar radiculopathy. PLAN: To arrange for an echocardiogram and MPI as an inpatient. We will discharge her home tomorrow. GLEN LLANES MD DR: BRENNEN/delfino JOB#: [id number] / [id number]
[2017-08-30 05:56] VITALS: BP 129/70
[2017-08-30] MEDS: MORPHINE SULFATE 4 MG/ML DISP.SYRIN. IV PRN ×2 (06:05→10:40)
[2017-08-30] MEDS ORDERED: ENOXAPARIN 40 MG/0.4 ML SYRINGE. SQ SCH (09:00)
[2017-08-30] MEDS ORDERED: REGADENOSON 0.4 MG/5 ML DISP.SYRIN. IV ONE (09:00)
[2017-08-30 10:38] VITALS: BP 156/78
[2017-08-30] MEDS: ASPIRIN 81 MG TAB.CHEW PO SCH (10:39)
--- NOTE | 2017-08-30 11:19 | PDOC ---
PROGRESS NOTES Diagnosis Problem Problems Medical Problems: (1) Chest pain Status: Acute Assessment Problems Medical Problems: (1) Chest pain Status: Acute 1. Chest pain, atypical - remains chest pain free since admission. 2. Mildly elevated troponin in the setting of uncontrolled hypertension - no acute echo changes. Echo reveals normal LVEF and wall motion. MPI today. 3. accelerated hypertension - likely secondary to pain - pressure mildly elevated today. consider addition of low dose ACEI/ARB. 4. hyperlipidemia - Mild elevation. encourage diet control. add statin if MPI abnormal. 5. tobaccoism - cessation encouraged Ok for discharge from CV standpoint if MPI normal. Subjective continued low back pain. no chest pain, no dyspnea, no palpitations. Objective Vital Signs Date Time Temp Pulse Resp B/P (MAP) Pulse Ox O2 Delivery O2 Flow Rate FiO2 08/30/17 11:16 94 Room Air 08/30/17 10:38 98.0 64 20 156/78 (104) Intake and Output 08/30/17 07:00 Intake Total 1200 ml Balance 1200 ml Intake Oral 1200 ml # Voids 5 Abdomen: Normal bowel sounds, Soft Heart: Regular rate, Normal S1, Normal S2 Extremities: No cyanosis, No edema, Normal pulses General: Alert, Oriented X3, Cooperative, mild distress HEENT: Atraumatic, EOMI Lungs: Clear to auscultation, Normal air movement Neuro: Normal speech, Strength at 5/5 X4 ext Psych/Mental Status: Mental status NL, Mood NL Review of Relevant I have reviewed the following items ayse (where applicable) has been applied. Labs Laboratory Tests Test 08/28/17 16:15 08/29/17 06:00 Troponin I Quantitative 0.054 ng/mL (0-0.055) Lipase 180 U/L (73-393) 192 U/L (73-393) Sodium Level 139 mmol/L (136-145) Potassium Level 3.9 mmol/L (3.5-5.1) Chloride Level 103 mmol/L (98-107) Carbon Dioxide Level 29 mmol/L (21-32) Anion Gap 7 (6-14) Blood Urea Nitrogen 11 mg/dL (7-20) Creatinine 0.6 mg/dL (0.6-1.0) Estimated GFR (Cockcroft-Gault) 103.0 Glucose Level 94 mg/dL (70-99) Calcium Level 8.9 mg/dL (8.5-10.1) Medications Current Medications Ketorolac Tromethamine (Toradol) 60 mg 1X ONCE IM Last administered on 18:44; Start 08/27/17 at 19:00; Stop 08/27/17 at 19:01; Status DC Orphenadrine Citrate (Norflex) 60 mg 1X ONCE IM Last administered on 08/27/17 18:43; Start 08/27/17 at 19:00; Stop 08/27/17 at 19:01; Status DC Morphine Sulfate (Morphine 10mg Syringe) 10 mg 1X ONCE SQ Last administered on 08/27/17 18:43; Start 08/27/17 at 19:00; Stop 08/27/17 at 19:01; Status DC Methylprednisolone Acetate (DEPO-Medrol IM) 40 mg 1X ONCE IM Last administered on 08/27/17 18:44; Start 08/27/17 at 19:00; Stop 08/27/17 at 19:01; Status DC Lactated Ringer's 1,000 ml @ 100 mls/hr Q10H IV Last administered on 08/27/17at 22:21; Start 08/27/17 at 20:30; Stop 08/28/17 at 06:29; Status DC Iohexol (Omnipaque 300 Mg/ml) 75 ml 1X ONCE IV Last administered on 08/27/17at 21:13; Start 08/27/17 at 21:00; Stop 08/27/17 at 21:01; Status DC Info (Do NOT chart on this entry -- for MONITORING) 1 each PRN DAILY PRN MC SEE COMMENTS; Start 08/27/17 at 20:45; Stop 08/29/17 at 20:44; Status DC Enoxaparin Sodium (Lovenox 80mg Syringe) 80 mg 1X ONCE SQ Last administered on 08/27/17 22:21; Start 08/27/17 at 21:45; Stop 08/27/17 at 22:00; Status DC Aspirin (Javid Aspirin) 325 mg 1X ONCE PO Last administered on 08/27/17 22:21 ; Start 08/27/17 at 21:45; Stop 08/27/17 at 22:00; Status DC Nitroglycerin (Nitro-Bid Oint) 1 inch 1X ONCE TP Last administered on 6/9/ 18at 22:22; Start 08/27/17 at 21:45; Stop 08/27/17 at 22:01; Status DC Morphine Sulfate (Morphine 2mg Syringe) 2 mg PRN Q2HR PRN IV PAIN; Start at 22:00; Stop 08/28/17 at 04:59; Status DC Aspirin (Children'S Aspirin) 81 mg DAILY08 PO Last administered on 08/30/17at 10 :39; Start 08/28/17 at 08:00 Enoxaparin Sodium (Lovenox 80mg Syringe) 80 mg BID SQ Last administered on 08/29at 10:20; Start 08/28/17 at 09:00; Stop 08/29/17 at 11:27; Status DC Nitroglycerin (Nitro-Bid Oint) 1 inch TID TP ; Start 08/28/17 at 09:00; Stop 02/05 at 11:27; Status DC Nicotine (Nicoderm Cq 21mg) 1 patch 1X ONCE TD Last administered on 08/27/17at 22:49; Start 08/27/17 at 22:30; Stop 08/27/17 at 22:34; Status DC Morphine Sulfate (Morphine 4mg Syringe) 2 mg PRN Q2HR PRN IV PAIN Last administered on 08/28/17at 20:10; Start 08/28/17 at 04:59; Stop 08/28/17 at 22:00 ; Status DC Nicotine (Nicoderm Cq 21mg) 1 patch PRN DAILY PRN TD SMOKING CESSATION Last administered on 08/28/17at 20:07; Start 08/28/17 at 19:30 Morphine Sulfate (Morphine 2mg Syringe) 2 mg PRN Q2HR PRN IV PAIN Last administered on 08/29/17at 00:15; Start 08/28/17 at 23:15; Stop 08/29/17 at 00:58 ; Status DC Morphine Sulfate (Morphine 4mg Syringe) 4 mg STK-MED ONCE .ROUTE ; Start at 00:12; Stop 08/29/17 at 00:13; Status DC Morphine Sulfate (Morphine 4mg Syringe) 2 mg PRN Q2HR PRN IV PAIN Last administered on 08/30/17at 10:40; Start 08/29/17 at 01:00 Enoxaparin Sodium (Lovenox 40mg Syringe) 40 mg DAILY SQ Last administered on 03/07at 10:39; Start 08/30/17 at 09:00 Regadenoson (Lexiscan) 0.4 mg 1X ONCE IV Last administered on 08/30/17at 11:12 ; Start 08/30/17 at 09:00; Stop 08/30/17 at 09:01; Status DC Active Scripts Active Reported Motrin Ib (Ibuprofen) 200 Mg Tablet 600 Mg PO PRN TID PRN LAST DOSE GIVEN: DATE: TIME: NEXT DOSE DUE: DATE: TIME: Atorvastatin Calcium 20 Mg Tablet 20 Mg PO DAILY LAST DOSE GIVEN: DATE: TIME: NEXT DOSE DUE: DATE: TIME: Omeprazole 20 Mg Capsule.dr 20 Mg PO DAILY LAST DOSE GIVEN: DATE: TIME: NEXT DOSE DUE: DATE: TIME: Sertraline Hcl 100 Mg Tablet 200 Mg PO DAILY LAST DOSE GIVEN: DATE: TIME: NEXT DOSE DUE: DATE: TIME: Vitals/I & O Vital Sign - Last 24 Hours 08/29/17 08/29/17 08/29/17 08/29/17 14:08 15:00 20:00 20:11 Temp 98.2 98.2 Pulse 70 77 Resp 16 20 B/P (MAP) 135/84 (101) 133/80 (97) Pulse Ox 93 93 94 O2 Delivery Room Air Room Air Room Air 08/29/17 08/29/17 08/30/17 08/30/17 20:27 23:50 05:56 06:05 Temp 97.6 Pulse 68 57 Resp 18 20 18 20 B/P (MAP) 128/70 (89) 129/70 (89) Pulse Ox 94 94 93 93 O2 Delivery Room Air Room Air 08/30/17 08/30/17 08/30/17 08/30/17 06:40 08:00 10:38 10:40 Temp 98.0 Pulse 64 Resp 20 20 B/P (MAP) 156/78 (104) Pulse Ox 94 94 O2 Delivery Room Air Room Air Room Air 08/30/17 11:16 Pulse Ox 94 O2 Delivery Room Air Intake and Output 08/29/17 08/29/17 08/30/17 15:00 23:00 07:00 Intake Total 120 ml 480 ml 600 ml Balance 120 ml 480 ml 600 ml CAMRYN IZQUIERDO [employer]ESSION[employer] Aug 30, 2017 11:19
--- NOTE | 2017-08-30 12:42 | RAD ---
MR#: [id number] Date of Study: 08/30/2017 Ordering Physician: CAMRYN MEZA Referring Physician: RAMESH PARIKH Tech: RT Jovan (R) (N) APPROVED REPORT Test Type: Pharmacological Stress Nurse/Tech: Simba Meza Test Indications: Elev Trop Cardiac History: No known cardiac Medications: See EHR Medical History: See EHR Resting Heart Rate: 58 bpm Resting Blood Pressure: 146/67mmHg Pretest Chest Pain: No chest pain Pharm. Details Pharmacologic stress testing was performed using 0.4mg per 5ml of regadenoson given intravenously ove r 7-10 seconds. Stress Symptoms Dyspnea POST EXERCISE Max HR: 100 bpm Blood Pressure response to exercise: Normal blood pressure response during stress. Heart Rate response to exercise: Normal Chest Pain: No. Arrhythmia: No. ST Change: No. INTERPRETATION Stress EKG Conclusion: No changes Imaging Protocol IMAGE PROTOCOL: Rest Tc-99m/stress Tc-99m 1 day Rest: Stress: Viability: Radiopharm.Tc99m HgfsepatsCn79s Sestamibi Dose11.3mCi 34mCi Duration 20min. 15min. Img Date 08/30/2017 08/30/2017 Inj-Img Mvur71nsm. 60min. Rest Admin Site:IV - Left AntecubitalAdministrator: RT Jovan (R)(N) Stress Admin Site: IV - Left AntecubitalAdministrator: RT Jovan (R)(N) STRESS DATA End Diast. Vol.104.0mlAv. Heart Rate70.0bpm LVEDV index BSA2.0mlCardiac Output0.1L/min End Syst. Vol.27.0mlCO Index BSA5.4L/min LVESV index BSA0.0mlMyocardial Fpic845.0g Eject. Pzlmlcjv19.0% Stress Rates Pk. Fill Rate3.95EDV/secLVtime Pk. Fill 129.27msec Pk. Empty Rate4.89ESV/secLVtime Pk. Zuwdv950.04msec 03/23 Pk. Fill2.20EDV/sec Stress Scores Regional WT1.00Summed WT12.00 Regional WM0.00Summed WM0.00 The rest and stress images show normal perfusion, normal contraction and thickening. LV Perf. Quant 17 Seg. SSS0.00 17 Seg. SRS0.00 17 Seg. SDS0.00 Stress Defect Extent (% LAD)0.00Rest Defect Extent (% LAD)0.00Rev. Defect Extent (% LAD)0.00 Stress Defect Extent (% LCX) 0.00Rest Defect Extent (% LCX)0.00Rev. Defect Extent (% LCX)0.00 Stress Defect Extent (% RCA)0.00Rest Defect Extent (% RCA)0.00Rev. Defect Extent (% RCA)0.00 Stress Defect Extent (% MAYITO)0.00Rest Defect Extent (% MAYITO)0.00Rev. Defect Extent (% MAYITO)0.00 Other Information Risk Assessment: Low Risk Conclusion 1. No evidence of EKG changes with stress testing. 2. Normal perfusion at stress/rest. 3. Low risk study. 4. EF > 60%. Signed by : Romel Strong, Electronically Approved : 08/30/2017 12:41:36
[2017-08-30] MEDS ORDERED: OXYC-323 PO (13:01)
--- NOTE | 2017-08-30 13:46 | NUR ---
Discharge Note: AGUSTÍN BRINK [address] Discharge instructions and discharge home medications reviewed with PATIENT and a copy given. All questions have been answered and understanding verbalized. The following instructions and handouts were given: MEDICATIONS, FOLLOW UP INSTRUCTIONS AND PRESCRIPTIONS GIVEN. Discontinued lines and drains: PERIPHERAL IV DISCONTINUED WITH NO COMPLICATIONS. Patient discharged to HOME with SPOUSE via PRIVATE VEHICLE.
--- NOTE | 2017-08-30 14:02 | DS ---
DATE OF DISCHARGE: 08/30/2017 HISTORY OF PRESENT ILLNESS: The patient is a 56-year-old female patient who came to the Emergency Room on 08/27/2017 with a complaint of back pain that has been going on for almost 3 weeks, worse in the last 2 days. She also complained of chest pain that has been intermittent. In the past week, she was seen in the Emergency Room and evaluated for her back and chest pain. She has had 3 sets of cardiac enzymes that ruled out myocardial infarction. EKG showed sinus bradycardia without any ST segment elevation or depression. She was seen in consultation by the Cardiology team and recommended to do an echocardiogram and a stress test. Her echocardiogram showed that her left ventricular size is normal with normal systolic function with an ejection fraction in the 55-60% range. She has mild concentric left ventricular hypertrophy, but no significant aortic valvular stenosis or other valvular abnormalities. The pulmonary artery pressure estimated at 30 mmHg. She had also a nuclear stress test, which basically showed that there is no evidence of EKG changes with stress testing, normal perfusion at stress and rest, low risk study with ejection fraction of more than 60%. As the patient has had no further chest pain, a decision was made to discharge her home with an arrangement for lumbar spine MRI as well as an appointment with Dr. Gutiérrez as she probably has what seemed to be a right L5 lumbar radiculopathy. PHYSICAL EXAMINATION: GENERAL: When I saw her today, she was resting slightly propped up in bed, in no apparent respiratory distress. No pallor, jaundice, cyanosis, lymphadenopathy or thyromegaly. No jugular venous distension. No limb edema. VITAL SIGNS: Her heart rate was 64, blood pressure was 156/78, temperature was 98, respiratory rate 20, and oxygen saturation was 94% on room air. HEAD, EYES, EARS, NOSE AND THROAT: Normocephalic, atraumatic. NECK: Supple. HEART: Showed normal first and second heart sounds with no gallop, rub or murmur. CHEST: Clear to auscultation. No crepitation or rhonchi. ABDOMEN: Distended, soft, nontender. NEUROLOGIC: She was awake, alert, responding appropriately. All cranial nerves intact. She moves upper extremities without difficulty. She has difficulty walking because of pain in her back whenever she puts weight on her right lower extremity. Her intake over the last 24 hours was 1200, output was 3250. LABORATORY DATA: As of this morning, her most recent lab work showed a white cell count of 7800, hemoglobin 13, hematocrit 40, MCV 79 and platelet count 219,000. Her serum sodium was 139, potassium 3.9, chloride 103, bicarbonate 29, anion gap of 7, BUN 11, creatinine 0.6, estimated GFR was 103 mL per minute. Her glucose was 94, calcium was 8.9. Her lipase was normal as her first set was high at 458. She has 3 sets of cardiac enzymes, slightly elevated, but trending down. DISCHARGE MEDICATIONS: She was discharged home to continue on following medication: Oxycodone/APAP 5/325 one tablet 4 times a day as needed for pain, atorvastatin calcium 20 mg daily at bedtime, ibuprofen 600 mg 3 times a day as needed, omeprazole 20 mg at bedtime daily and sertraline 200 mg daily. FINAL DISCHARGE DIAGNOSES: Atypical chest pain, myocardial infarction ruled out. Right lumbar radiculopathy for which we started her on oxycodone/APAP 5/325 one tablet 4 times a day and arrangements made for an MRI and an appointment with Dr. Gutiérrez. Hyperlipidemia, gastroesophageal reflux disease and depression. GLEN LLANES MD DR: BRENNEN/delfino JOB#: [id number] / [id number]
== END 2017-08-30 13:50 | disposition home or self-care (01) | DRG 552 ==
LOC: ER 17:56 → 1 SOUTH 23:00
PROVIDERS: ADMIT Internal Medicine; ATTEND Internal Medicine
DX: M54.16 Radiculopathy, lumbar region (principal); J98.11 Atelectasis; R07.89 Other chest pain; M54.30 Sciatica, unspecified side; E78.5 Hyperlipidemia, unspecified; F17.210 Nicotine dependence, cigarettes, uncomplicated; F32.9 Major depressive disorder, single episode, unspecified; I11.9 Hypertensive heart disease without heart failure; M19.90 Unspecified osteoarthritis, unspecified site; I51.7 Cardiomegaly; K21.9 Gastro-esophageal reflux disease without esophagitis; Z82.49 Family history of ischemic heart disease and other diseases of the circulatory system; Z82.5 Family history of asthma and other chronic lower respiratory diseases; E11.9 Type 2 diabetes mellitus without complications
CPT/HCPCS: 36415; 71046; 71275; 72131; 76700; 78452; 80048; 80061; 80076; 81001; 82553; 83690; 83735; 83880; 84443; 84484; 85025; 85379; 85610; 85730; 93005; 93017; 93306; 93970; 96360; 96372; 96374; 96375; 96376; 99406; A9500; J1030; J1650; J1885; J2270; J2360; J2785; J7120; Q9967; 99285-25

== ENCOUNTER 2018-03-28 17:38 | Observation (INO) | payer BC ==
[~2018-03-28] VITALS: Ht 172.7 cm; Wt 71.9 kg
[~2018-03-28 17:38] MED LIST: ATOR20TA58 PO; IBUP200T44 PO; OMEP20CA9 PO; OXYC1TAB15 PO; SERT100T8 PO; atorvastatin; omeprazole; sertraline
[2018-03-28] MEDS ORDERED: ALBUTEROL SULFATE 8GM INHALER. INH ONE (18:00)
--- NOTE | 2018-03-28 18:01 | ED.ADGEN ---
Past History Past Medical History: Bronchitis, Depression, GERD, High Cholesterol, Hypertension Past Surgical History: Other Alcohol Use: None Drug Use: None Adult General Chief Complaint Chief Complaint ".. I ve been sick for over a month now with this bronchitis.. cough,.. wheezing and shortness of breath....",, " My chest hurts to breath... " HPI HPI Patient is a 57 year old female who presents with above hx of COPD, Bronchitis complaints for weeks. Pt. does have some central chest discomfort that is related to coughing episodes. Pt. denies any trauma. Give no previous cardiac hx. Does have hx of persistent tobacco use. Pt. denies any travel or specific ill contacts. Pt. reports increased dyspnea today. Pt. normally follows with Dr. Manning. Review of Systems Review of Systems Constitutional: Hx. fever or chills [] Eyes: Denies change in visual acuity, redness, or eye pain [] HENT: Hx. nasal congestion and sore throat [] Respiratory: Hx. cough , Wheezing and shortness of breath [] Cardiovascular: No additional information not addressed in HPI [] GI: Denies abdominal pain, nausea, vomiting, bloody stools or diarrhea [] : Denies dysuria or hematuria [] Musculoskeletal: Denies back pain or joint pain [] Integument: Denies rash or skin lesions [] Neurologic: Denies headache, focal weakness or sensory changes [] Endocrine: Denies polyuria or polydipsia [] All other systems were reviewed and found to be within normal limits, except as documented in this note. Family History Family History Non-contributory Current Medications Current Medications Current Medications Medications (Trade) Dose Ordered Sig/Bianca Start Time Stop Time Status Last Admin Dose Admin Albuterol Sulfate (Ventolin Hfa Inhaler) 2 puff 1X ONCE 03/28/18 18:00 03/28/18 18:07 DC 03/28/18 19:22 2 PUFF Albuterol/ Ipratropium (Duoneb) 3 ml RTQID 03/28/18 20:00 03/29/18 19:59 03/28/18 20:20 3 ML Azithromycin (Zithromax) 500 mg 1X ONCE 03/28/18 18:15 03/28/18 18:16 DC 03/28/18 18:27 500 MG Ceftriaxone Sodium 1 gm/ Sodium Chloride 50 ml @ 100 mls/hr DAILY 03/28/18 20:00 03/28/18 21:23 DC 03/28/18 20:20 100 MLS/HR Ceftriaxone Sodium (Rocephin) 1 gm STK-MED ONCE 03/28/18 20:17 03/28/18 20:19 DC Enoxaparin Sodium (Lovenox 80mg Syringe) 80 mg 1X ONCE 03/28/18 20:00 03/28/18 20:01 DC 03/28/18 20:15 80 MG Methylprednisolone Sodium Succinate (SOLU-Medrol 125MG VIAL) 125 mg 1X ONCE 03/28/18 18:15 03/28/18 18:16 DC 03/28/18 18:25 125 MG Morphine Sulfate (Morphine 2mg Syringe) 2 mg PRN Q2HR PRN 03/28/18 19:30 03/29/18 19:29 Nitroglycerin (Nitro-Bid Oint) 1 inch TID 03/28/18 21:00 03/28/18 20:26 1 INCH Ondansetron HCl (Zofran) 4 mg PRN Q4HRS PRN 03/28/18 19:30 03/29/18 19:29 03/28/18 20:14 4 MG Allergies Allergies Allergies Coded Allergies Type Severity Reaction Last Updated Verified No Known Drug Allergies 08/27/17 No Physical Exam Physical Exam Constitutional:Moderately acute distress, non-toxic appearance. [] HENT: Normocephalic, atraumatic, bilateral external ears normal, oropharynx moist, no oral exudates, nose swollen turbinates and clear rhinorrhea. Eyes: PERRLA, EOMI, conjunctiva normal, no discharge. [] Neck: Normal range of motion, no tenderness, supple, no stridor. [] Cardiovascular:Bradycardia Heart rate regular rhythm, no murmur [] Lungs & Thorax: Bilateral breath sounds equal at apexes with diffuses wheezing on auscultation []Periodic coughing episodes. Abdomen: Bowel sounds normal, soft, no tenderness, no masses, no pulsatile masses. [] Skin: Warm, dry, no erythema, no rash. [] Back: No tenderness, no CVA tenderness. [] Extremities: No tenderness, no cyanosis, no clubbing, ROM intact, no edema. [] Neurologic: Alert and oriented X 3, normal motor function, normal sensory function, no focal deficits noted. [] Psychologic: Affect anxious, judgement normal, mood normal. [] Current Patient Data Vital Signs Vital Signs Date Time Temp Pulse Resp B/P (MAP) Pulse Ox O2 Delivery O2 Flow Rate FiO2 03/28/18 21:00 96 Room Air 03/28/18 20:58 79 20 158/110 (126) 03/28/18 17:38 97.5 Lab Results Laboratory Tests Test 03/28/18 18:25 White Blood Count 8.6 x10^3/uL (4.0-11.0) Red Blood Count 5.17 x10^6/uL (3.50-5.40) Hemoglobin 13.4 g/dL (12.0-15.5) Hematocrit 41.1 % (36.0-47.0) Mean Corpuscular Volume 80 fL (79-100) Mean Corpuscular Hemoglobin 26 pg (25-35) Mean Corpuscular Hemoglobin Concent 33 g/dL (31-37) Red Cell Distribution Width 15.3 % (11.5-14.5) H Platelet Count 255 x10^3/uL (140-400) Neutrophils (%) (Auto) 64 % (31-73) Lymphocytes (%) (Auto) 26 % (24-48) Monocytes (%) (Auto) 7 % (0-9) Eosinophils (%) (Auto) 3 % (0-3) Basophils (%) (Auto) 1 % (0-3) Neutrophils # (Auto) 5.5 x10^3uL (1.8-7.7) Lymphocytes # (Auto) 2.2 x10^3/uL (1.0-4.8) Monocytes # (Auto) 0.6 x10^3/uL (0.0-1.1) Eosinophils # (Auto) 0.2 x10^3/uL (0.0-0.7) Basophils # (Auto) 0.1 x10^3/uL (0.0-0.2) Prothrombin Time 9.9 SEC (9.4-11.4) Prothrombin Time INR 1.0 (0.9-1.1) PTT 27 SEC (23-33) D-Dimer (Jemma) 0.30 mg/L (0.00-0.50) Urine Collection Type Unknown Urine Color Yellow Urine Clarity Hazy Urine pH 6.0 Urine Specific [place] <=1.005 Urine Protein Neg (NEG-TRACE) Urine Glucose (UA) Neg mg/dL (NEG) Urine Ketones (Stick) Neg mg/dL (NEG) Urine Blood Trace (NEG) Urine Nitrite Neg (NEG) Urine Bilirubin Neg (NEG) Urine Urobilinogen Dipstick 0.2 mg/dL (0.2 mg/dL) Urine Leukocyte Esterase Trace (NEG) Urine RBC Rare /HPF (0-2) Urine WBC Rare /HPF (0-4) Urine Squamous Epithelial Cells None /LPF Urine Bacteria 0 /HPF (0-FEW) Sodium Level 139 mmol/L (136-145) Potassium Level 3.6 mmol/L (3.5-5.1) Chloride Level 103 mmol/L (98-107) Carbon Dioxide Level 27 mmol/L (21-32) Anion Gap 9 (6-14) Blood Urea Nitrogen 13 mg/dL (7-20) Creatinine 0.7 mg/dL (0.6-1.0) Estimated GFR (Cockcroft-Gault) 85.9 Glucose Level 85 mg/dL (70-99) Calcium Level 8.6 mg/dL (8.5-10.1) Magnesium Level 2.3 mg/dL (1.8-2.4) Total Bilirubin 0.3 mg/dL (0.2-1.0) Direct Bilirubin 0.1 mg/dL (0.0-0.2) Aspartate Amino Transferase (AST) 13 U/L (15-37) L Alanine Aminotransferase (ALT) 17 U/L (14-59) Alkaline Phosphatase 110 U/L (46-116) Creatine Kinase 86 U/L (26-192) Troponin I Quantitative 0.073 ng/mL (0-0.055) H HL-Wzc-B-Type Natriuretic Peptide 543 pg/mL (0-124) H Total Protein 7.1 g/dL (6.4-8.2) Albumin 3.2 g/dL (3.4-5.0) L Lipase 218 U/L (73-393) Urine Opiates Screen Neg (NEG) Urine Methadone Screen Neg (NEG) Urine Barbiturates Neg (NEG) Urine Phencyclidine Screen Neg (NEG) Urine Amphetamine/Methamphetamine Neg (NEG) Urine Benzodiazepines Screen Neg (NEG) Urine Cocaine Screen Neg (NEG) Urine Cannabinoids Screen Neg (NEG) Urine Ethyl Alcohol Neg (NEG) Influenza Type A (Rapid) Negative (NEGATIVE) Influenza Type B (Rapid) Negative (NEGATIVE) EKG EKG My interpretation of EKG shows sinus Bradycardia at rate 59[]. Some contour changes anterolateral leads. No findings of Acute STEMI with contralateral changes. Radiology/Procedures Radiology/Procedures My interpretation of chest x-ray shows chronic pulmonary changes emphysema/ COPD.. Some left basilar scarring or infiltrate. Normal cardiac silhouette. Course & Med Decision Making Course & Med Decision Making Pertinent Labs and Imaging studies reviewed. (See chart for details). Patient admitted to Dr. Acevedo and for Cardiology consult. [] Final Impression Final Impression 1. Dyspnea[]- COPD/bronchitis exacerbation 2. Chest pain- with + Trop. 0.073 3. Tobacco abuse 4. Elevated BNP 543 5. HTN 6. Bradycardia Dragon Disclaimer Dragon Disclaimer This electronic medical record was generated, in whole or in part, using a voice recognition dictation system. Dragon Disclaimer This chart was dictated in whole or in part using Voice Recognition software in a busy, high-work load, and often noisy Emergency Department environment. It may contain unintended and wholly unrecognized errors or omissions. Discharge Summary Visit Information Final Diagnosis Problems Medical Problems: (1) COPD (chronic obstructive pulmonary disease) Status: Acute Brief Hospital Course Allergies Allergies Coded Allergies Type Severity Reaction Last Updated Verified No Known Drug Allergies 08/27/17 No Vital Signs Vital Signs Date Time Temp Pulse Resp B/P (MAP) Pulse Ox O2 Delivery O2 Flow Rate FiO2 03/28/18 21:00 96 Room Air 03/28/18 20:58 79 20 158/110 (126) 03/28/18 17:38 97.5 Lab Results Laboratory Tests Test 03/28/18 18:25 White Blood Count 8.6 x10^3/uL (4.0-11.0) Red Blood Count 5.17 x10^6/uL (3.50-5.40) Hemoglobin 13.4 g/dL (12.0-15.5) Hematocrit 41.1 % (36.0-47.0) Mean Corpuscular Volume 80 fL (79-100) Mean Corpuscular Hemoglobin 26 pg (25-35) Mean Corpuscular Hemoglobin Concent 33 g/dL (31-37) Red Cell Distribution Width 15.3 % (11.5-14.5) Platelet Count 255 x10^3/uL (140-400) Neutrophils (%) (Auto) 64 % (31-73) Lymphocytes (%) (Auto) 26 % (24-48) Monocytes (%) (Auto) 7 % (0-9) Eosinophils (%) (Auto) 3 % (0-3) Basophils (%) (Auto) 1 % (0-3) Neutrophils # (Auto) 5.5 x10^3uL (1.8-7.7) Lymphocytes # (Auto) 2.2 x10^3/uL (1.0-4.8) Monocytes # (Auto) 0.6 x10^3/uL (0.0-1.1) Eosinophils # (Auto) 0.2 x10^3/uL (0.0-0.7) Basophils # (Auto) 0.1 x10^3/uL (0.0-0.2) Prothrombin Time 9.9 SEC (9.4-11.4) Prothromb Time International Ratio 1.0 (0.9-1.1) Activated Partial Thromboplast Time 27 SEC (23-33) D-Dimer (Jemma) 0.30 mg/L (0.00-0.50) Urine Collection Type Unknown Urine Color Yellow Urine Clarity Hazy Urine pH 6.0 Urine Specific [place] <=1.005 Urine Protein Neg (NEG-TRACE) Urine Glucose (UA) Neg mg/dL (NEG) Urine Ketones (Stick) Neg mg/dL (NEG) Urine Blood Trace (NEG) Urine Nitrite Neg (NEG) Urine Bilirubin Neg (NEG) Urine Urobilinogen Dipstick 0.2 mg/dL (0.2 mg/dL) Urine Leukocyte Esterase Trace (NEG) Urine RBC Rare /HPF (0-2) Urine WBC Rare /HPF (0-4) Urine Squamous Epithelial Cells None /LPF Urine Bacteria 0 /HPF (0-FEW) Sodium Level 139 mmol/L (136-145) Potassium Level 3.6 mmol/L (3.5-5.1) Chloride Level 103 mmol/L (98-107) Carbon Dioxide Level 27 mmol/L (21-32) Anion Gap 9 (6-14) Blood Urea Nitrogen 13 mg/dL (7-20) Creatinine 0.7 mg/dL (0.6-1.0) Estimated GFR (Cockcroft-Gault) 85.9 Glucose Level 85 mg/dL (70-99) Calcium Level 8.6 mg/dL (8.5-10.1) Magnesium Level 2.3 mg/dL (1.8-2.4) Total Bilirubin 0.3 mg/dL (0.2-1.0) Direct Bilirubin 0.1 mg/dL (0.0-0.2) Aspartate Amino Transf (AST/SGOT) 13 U/L (15-37) Alanine Aminotransferase (ALT/SGPT) 17 U/L (14-59) Alkaline Phosphatase 110 U/L (46-116) Creatine Kinase 86 U/L (26-192) Troponin I Quantitative 0.073 ng/mL (0-0.055) TU-Hbx-H-Type Natriuretic Peptide 543 pg/mL (0-124) Total Protein 7.1 g/dL (6.4-8.2) Albumin 3.2 g/dL (3.4-5.0) Lipase 218 U/L (73-393) Urine Opiates Screen Neg (NEG) Urine Methadone Screen Neg (NEG) Urine Barbiturates Neg (NEG) Urine Phencyclidine Screen Neg (NEG) Urine Amphetamine/Methamphetamine Neg (NEG) Urine Benzodiazepines Screen Neg (NEG) Urine Cocaine Screen Neg (NEG) Urine Cannabinoids Screen Neg (NEG) Urine Ethyl Alcohol Neg (NEG) Influenza Type A (Rapid) Negative (NEGATIVE) Influenza Type B (Rapid) Negative (NEGATIVE) Brief Hospital Course Ms. Bryan is a 57 old female who presented with complaints to increase coughing , wheezing and dyspnea. Pt. found to have elevated Trop. Admitted for Cardiology consult and tx. COPD exacerbation. Pt. reported resolution of chest discomfort and marked improvement of dyspnea. Discharge Information Condition at Discharge: Improved Dischare Medications Current Medications Methylprednisolone Sodium Succinate (SOLU-Medrol 125MG VIAL) 125 mg 1X ONCE IV Last administered on 03/28/18at 18:25; Admin Dose 125 MG; Start 03/28/18 at 18:15 ; Stop 03/28/18 at 18:16; Status DC Albuterol Sulfate (Ventolin Hfa Inhaler) 2 puff 1X ONCE INH Last administered on 03/28/18at 19:22; Admin Dose 2 PUFF; Start 03/28/18 at 18:00; Stop 03/28/18 at 18 :07; Status DC Azithromycin (Zithromax) 500 mg 1X ONCE PO Last administered on 03/28/18at 18:27 ; Admin Dose 500 MG; Start 03/28/18 at 18:15; Stop 03/28/18 at 18:16; Status DC Enoxaparin Sodium (Lovenox 80mg Syringe) 80 mg 1X ONCE SQ Last administered on 03/28/18at 20:15; Admin Dose 80 MG; Start 03/28/18 at 20:00; Stop 03/28/18 at 20: 01; Status DC Ondansetron HCl (Zofran) 4 mg PRN Q4HRS PRN IV NAUSEA/VOMITING Last administered on 03/28/18at 20:14; Admin Dose 4 MG; Start 03/28/18 at 19:30; Stop at 19:29 Morphine Sulfate (Morphine 2mg Syringe) 2 mg PRN Q2HR PRN IV PAIN; Start at 19:30; Stop 03/29/18 at 19:29 Albuterol/ Ipratropium (Duoneb) 3 ml RTQID NEB Last administered on 03/28/18at 20 :20; Admin Dose 3 ML; Start 03/28/18 at 20:00; Stop 03/29/18 at 19:59 Nitroglycerin (Nitro-Bid Oint) 1 inch TID TP Last administered on 03/28/18at 20: 26; Admin Dose 1 INCH; Start 03/28/18 at 21:00 Ceftriaxone Sodium 1 gm/ Sodium Chloride 50 ml @ 100 mls/hr DAILY IV Last administered on 03/28/18 20:20; Admin Dose 100 MLS/HR; Start 03/28/18 at 20:00; Stop 03/28/18 at 21:23; Status DC Ceftriaxone Sodium (Rocephin) 1 gm STK-MED ONCE IVP ; Start 03/28/18 at 20:17; Stop 03/28/18 at 20:19; Status DC Active Scripts Active Percocet 5-325 Mg Tablet (Oxycodone Hcl/Acetaminophen) 1 Each Tablet 1 Tab PO QID Reported Motrin Ib (Ibuprofen) 200 Mg Tablet 600 Mg PO PRN TID PRN RESTART IF/WHEN NEEDED DATE: TIME: NEXT DOSE DUE: DATE: TIME: Atorvastatin Calcium 20 Mg Tablet 20 Mg PO DAILY RESTART TONIGHT DATE: TIME: NEXT DOSE DUE: DATE: TIME: Omeprazole 20 Mg Capsule.dr 20 Mg PO DAILY RESTART TOMORROW AM DATE: TIME: NEXT DOSE DUE: DATE: TIME: Sertraline Hcl 100 Mg Tablet 200 Mg PO DAILY RESTART TOMORROW AM DATE: TIME: NEXT DOSE DUE: DATE: TIME: DARRYL SHEPHERD MD Mar 28, 2018 18:01
[2018-03-28] MEDS ORDERED: AZITHROMYCIN 250 MG TABLET. PO ONE (18:15)
[2018-03-28] MEDS ORDERED: methylPREDNISolone SOD SUCC PF 125 MG/2 ML VIAL. IV ONE (18:15)
[2018-03-28 19:07] LABS: BASO # 0.1 x10^3/uL (0.0-0.2); BASO % 1 % (0-3); EOS # 0.2 x10^3/uL (0.0-0.7); EOS % 3 % (0-3); HEMATOCRIT 41.1 % (36.0-47.0); HEMOGLOBIN 13.4 g/dL (12.0-15.5); LYMPH # 2.2 x10^3/uL (1.0-4.8); LYMPH % 26 % (24-48); MEAN CORPUSCULAR HEMOGLOBIN 26 pg (25-35); MEAN CORPUSCULAR HGB CONC 33 g/dL (31-37); MEAN CORPUSCULAR VOLUME 80 fL (79-100); MONO # 0.6 x10^3/uL (0.0-1.1); MONO % 7 % (0-9); NEUT # 5.5 x10^3uL (1.8-7.7); NEUT % 64 % (31-73); PLATELET COUNT 255 x10^3/uL (140-400); RED BLOOD COUNT 5.17 x10^6/uL (3.50-5.40); RED CELL DISTRIBUTION WIDTH 15.3 % (11.5-14.5); WHITE BLOOD COUNT 8.6 x10^3/uL (4.0-11.0)
[2018-03-28 19:25] LABS: ALBUMIN 3.2 g/dL (3.4-5.0); CALCIUM 8.6 mg/dL (8.5-10.1); CREATININE 0.7 mg/dL (0.6-1.0); DIRECT BILIRUBIN 0.1 mg/dL (0.0-0.2); GFR 85.9; MAGNESIUM 2.3 mg/dL (1.8-2.4); POTASSIUM 3.6 mmol/L (3.5-5.1); TOTAL BILIRUBIN 0.3 mg/dL (0.2-1.0); TOTAL PROTEIN 7.1 g/dL (6.4-8.2)
[2018-03-28 19:30] LABS: INFLUENZA A PATIENT NEGATIVE (NEGATIVE); INFLUENZA B PATIENT NEGATIVE (NEGATIVE)
[2018-03-28] MEDS ORDERED: ONDANSETRON PF 4 MG/2 ML VIAL. IV PRN (19:30)
[2018-03-28] MEDS ORDERED: MORPHINE SULFATE 2 MG/ML DISP.SYRIN. IV PRN (19:30)
[2018-03-28 19:50] LABS: AMPHETAMINE/METHAMPHETAMINE NEG (NEG); BARBITURATES NEG (NEG); BENZODIAZEPINES NEG (NEG); CANNABINOIDS NEG (NEG); COCAINE NEG (NEG); METHADONE NEG (NEG); OPIATES NEG (NEG); PHENCYCLIDINE NEG (NEG)
[2018-03-28] MEDS ORDERED: ENOXAPARIN ** NOTE DOSE ** SYRINGE SQ ONE (20:00)
[2018-03-28 20:11] LABS: BACTERIA,URINE 0 /HPF (0-FEW); BILIRUBIN,URINE NEG (NEG); CLARITY,URINE HAZY; COLOR,URINE YELLOW; GLUCOSE,URINE NEG (NEG); NITRITE,URINE NEG (NEG); RBC,URINE RARE /HPF (0-2); UROBILINOGEN,URINE 0.2 mg/dL (0.2 mg/dL); WBC,URINE RARE /HPF (0-4)
[2018-03-28] MEDS: NITROGLYCERIN OINT 1 GM PACKET. TP SCH ×2 (20:15→20:26)
[2018-03-28] MEDS ORDERED: cefTRIAXone IV Push 1 GM VIAL. IVP ONE (20:17)
[2018-03-28] MEDS: IPRATRPIUM/ALBUTEROL 0.5/2.5MG 3 ML NEBU. NEB SCH (20:20)
[2018-03-28 21:45] VITALS: BP 136/66
[2018-03-28] MEDS: ACETAMINOPHEN 325 MG TABLET PO PRN (23:59)
--- NOTE | 2018-03-29 00:10 | RAD ---
Examination: CHEST PA LATERAL History: cough
hx copd Comparison/Correlation: 08/27/2017 two-view chest x-ray exam Findings: PA and lateral views of chest were obtained. Heart size and pulmonary vasculature are normal. Minimal scarring involving the left lower lung field is again seen. No infiltrate or pleural effusion. Borderline pulmonary hyperinflation evident. No pneumothorax. Old left rib fractures are present. Impression: No active disease. Electronically signed by: Keshav George MD (03/29/2018 12:05 AM) [facility]
[2018-03-29] MEDS: IPRATRPIUM/ALBUTEROL 0.5/2.5MG 3 ML NEBU. NEB SCH ×2 (04:59→09:42)
--- NOTE | 2018-03-29 05:47 | EKG ---
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
[2018-03-29 06:17] VITALS: BP 151/76
[2018-03-29 07:02] LABS: BASO % 0 % (0-3); EOS % 0 % (0-3); HEMATOCRIT 40.3 % (36.0-47.0); HEMOGLOBIN 13.1 g/dL (12.0-15.5); LYMPH # 0.8 x10^3/uL (1.0-4.8); LYMPH % 8 % (24-48); MEAN CORPUSCULAR HEMOGLOBIN 26 pg (25-35); MEAN CORPUSCULAR HGB CONC 32 g/dL (31-37); MEAN CORPUSCULAR VOLUME 80 fL (79-100); MONO # 0.4 x10^3/uL (0.0-1.1); MONO % 4 % (0-9); NEUT # 9.1 x10^3uL (1.8-7.7); NEUT % 88 % (31-73); PLATELET COUNT 220 x10^3/uL (140-400); RED BLOOD COUNT 5.02 x10^6/uL (3.50-5.40); RED CELL DISTRIBUTION WIDTH 15.3 % (11.5-14.5); WHITE BLOOD COUNT 10.3 x10^3/uL (4.0-11.0)
[2018-03-29 07:05] LABS: CALCIUM 8.7 mg/dL (8.5-10.1); CREATININE 0.9 mg/dL (0.6-1.0); GFR 64.3; POTASSIUM 3.9 mmol/L (3.5-5.1)
[2018-03-29] MEDS: NITROGLYCERIN OINT 1 GM PACKET. TP SCH (07:59)
[2018-03-29] MEDS: ACETAMINOPHEN 325 MG TABLET PO PRN (08:00)
[2018-03-29] MEDS ORDERED: LACTOBACILLUS RHAMNOSUS GG 1 CAPSULE. PO SCH (09:00)
[2018-03-29] MEDS ORDERED: ASPIRIN 81 MG TAB.CHEW PO SCH (09:00)
[2018-03-29] MEDS ORDERED: AZITHROMYCIN 250 MG TABLET. PO SCH (09:00)
[2018-03-29] MEDS ORDERED: ENOXAPARIN ** NOTE DOSE ** SYRINGE SQ SCH (09:00)
--- NOTE | 2018-03-29 09:57 | PDOC2 ---
CONSULT Date of Admission DATE: 03/29/18 TIME: 09:56 Reason for Consult: elevated troponin Problem List Problems Medical Problems: (1) COPD (chronic obstructive pulmonary disease) Status: Acute History of Present Illness Ms Bryan is a 57 year old female who presented to the ED with complaints of cough and intermittent wheezing that has been ongoing for a month. Cardiac enzymes drawn revealed minimally elevated troponin so consult was called. She reports occasional wheezing, cough that is occasionally productive with clear sputum. She is unsure of fever. She adamantly denies any chest pain or congestive symptoms. She denies any decrease in her functional capacity. She denies palpitations, lightheadedness or syncope. She would like to go home. She was recently evaluated with echo and stress testing which failed to reveal any significant abnormalities. Past Medical History Past Medical History Significant for hyperlipidemia, osteoarthritis, GERD and degenerative disk disease. Echo 08/29/17 The left ventricle is normal size. The left ventricular systolic function is normal and the ejection fraction is within normal range. Left ventricular ejection fraction is 55-60%. There is mild concentric left ventricular hypertrophy. There is no significant aortic valvular stenosis. Doppler and Color Flow revealed no significant aortic regurgitation. Doppler and Color Flow revealed no mitral valve regurgitation noted. Doppler and Color Flow revealed trace to mild tricuspid regurgitation. The PA pressure was estimated at 30 mmHg. MPI 08/30/17 Conclusion 1. No evidence of EKG changes with stress testing. 2. Normal perfusion at stress/rest. 3. Low risk study. 4. EF > 60%. Past Surgical History Past Surgical History Significant for hemorrhoidectomy, trigger fingers in her right thumb and colonoscopy. Family History Family History She has 2 sisters younger and healthy. Her father is still alive at age of 73 and has COPD, and mother is alive at age of 72 and she is known to have congestive heart failure and has AICD secondary to VT/VF arrest reportedly due to heart defect. . Social History Social History She is , has no children. She smokes 2 packs a day, does not drink alcohol. She is retired from [employer] and she now works at [employer]. Current Medications Current Medications Methylprednisolone Sodium Succinate (SOLU-Medrol 125MG VIAL) 125 mg 1X ONCE IV Last administered on 03/28/18at 18:25; Start 03/28/18 at 18:15; Stop 03/28/18 at 18:16; Status DC Albuterol Sulfate (Ventolin Hfa Inhaler) 2 puff 1X ONCE INH Last administered on 03/28/18 19:22; Start 03/28/18 at 18:00; Stop 03/28/18 at 18:07; Status DC Azithromycin (Zithromax) 500 mg 1X ONCE PO Last administered on 03/28/18 18:27 ; Start 03/28/18 at 18:15; Stop 03/28/18 at 18:16; Status DC Enoxaparin Sodium (Lovenox 80mg Syringe) 80 mg 1X ONCE SQ Last administered on 03/28/18 20:15; Start 03/28/18 at 20:00; Stop 03/28/18 at 20:01; Status DC Ondansetron HCl (Zofran) 4 mg PRN Q4HRS PRN IV NAUSEA/VOMITING Last administered on 03/28/18 20:14; Start 03/28/18 at 19:30; Stop 03/29/18 at 19:29 Morphine Sulfate (Morphine 2mg Syringe) 2 mg PRN Q2HR PRN IV PAIN; Start at 19:30; Stop 03/29/18 at 19:29 Albuterol/ Ipratropium (Duoneb) 3 ml RTQID NEB Last administered on 03/29/18at 04 :59; Start 03/28/18 at 20:00; Stop 03/29/18 at 19:59 Nitroglycerin (Nitro-Bid Oint) 1 inch TID TP Last administered on 03/28/18 20: 26; Start 03/28/18 at 21:00 Aspirin (Children'S Aspirin) 81 mg DAILY PO Last administered on 03/29/18at 08:00 ; Start 03/29/18 at 09:00 Enoxaparin Sodium (Lovenox 80mg Syringe) 80 mg BID SQ Last administered on at 08:00; Start 03/29/18 at 09:00 Azithromycin (Zithromax) 250 mg DAILY PO Last administered on 03/29/18at 08:00; Start 03/29/18 at 09:00 Ceftriaxone Sodium 1 gm/ Sodium Chloride 50 ml @ 100 mls/hr DAILY IV Last administered on 03/28/18at 20:20; Start 03/28/18 at 20:00; Stop 03/28/18 at 21:23; Status DC Ceftriaxone Sodium (Rocephin) 1 gm STK-MED ONCE IVP ; Start 03/28/18 at 20:17; Stop 03/28/18 at 20:19; Status DC Ceftriaxone Sodium 1 gm/ Sodium Chloride 50 ml @ 100 mls/hr Q24H IV ; Start 03/28/18 at 21:30; Stop 03/28/18 at 21:30; Status DC Ceftriaxone Sodium 1 gm/ Sodium Chloride 50 ml @ 100 mls/hr Q24H IV ; Start 03/29/18 at 20:00 Lactobacillus Rhamnosus (Culturelle) 1 cap BID PO Last administered on at 08:00; Start 03/29/18 at 09:00 Acetaminophen (Tylenol) 650 mg PRN Q6HRS PRN PO PAIN / TEMP Last administered on 03/29/18at 08:00; Start 03/28/18 at 23:45 Active Scripts Active Percocet 5-325 Mg Tablet (Oxycodone Hcl/Acetaminophen) 1 Each Tablet 1 Tab PO QID Reported Motrin Ib (Ibuprofen) 200 Mg Tablet 600 Mg PO PRN TID PRN RESTART IF/WHEN NEEDED DATE: TIME: NEXT DOSE DUE: DATE: TIME: Atorvastatin Calcium 20 Mg Tablet 20 Mg PO DAILY RESTART TONIGHT DATE: TIME: NEXT DOSE DUE: DATE: TIME: Omeprazole 20 Mg Capsule.dr 20 Mg PO DAILY RESTART TOMORROW AM DATE: TIME: NEXT DOSE DUE: DATE: TIME: Sertraline Hcl 100 Mg Tablet 200 Mg PO DAILY RESTART TOMORROW AM DATE: TIME: NEXT DOSE DUE: DATE: TIME: Allergies: Coded Allergies: No Known Drug Allergies (Unverified , 08/27/17) Review of System as per HPI or negative General: Alert, Oriented X3, Cooperative, No acute distress HEENT: Atraumatic, EOMI, Mucous membr. moist/pink Lungs: Clear to auscultation, Normal air movement Heart: Normal S1, Normal S2, Other (no significant murmurs, no gallops, clicks or rubs) Abdomen: Normal bowel sounds, Soft, No tenderness Extremities: No cyanosis, No edema, Normal pulses Skin: No rashes Neuro: Normal speech, Strength at 5/5 X4 ext Psych/Mental Status: Mental status NL, Mood NL VITALS Vital Signs Date Time Temp Pulse Resp B/P (MAP) Pulse Ox O2 Delivery O2 Flow Rate FiO2 03/29/18 09:42 98 Room Air 03/29/18 07:59 86 151/76 03/29/18 06:17 98.2 20 Labs Laboratory Tests Test 03/28/18 18:25 03/28/18 22:20 03/29/18 02:30 03/29/18 06:30 White Blood Count 8.6 x10^3/uL (4.0-11.0) 10.3 x10^3/uL (4.0-11.0) Red Blood Count 5.17 x10^6/uL (3.50-5.40) 5.02 x10^6/uL (3.50-5.40) Hemoglobin 13.4 g/dL (12.0-15.5) 13.1 g/dL (12.0-15.5) Hematocrit 41.1 % (36.0-47.0) 40.3 % (36.0-47.0) Mean Corpuscular Volume 80 fL (79-100) 80 fL (79-100) Mean Corpuscular Hemoglobin 26 pg (25-35) 26 pg (25-35) Mean Corpuscular Hemoglobin Concent 33 g/dL (31-37) 32 g/dL (31-37) Red Cell Distribution Width 15.3 % (11.5-14.5) 15.3 % (11.5-14.5) Platelet Count 255 x10^3/uL (140-400) 220 x10^3/uL (140-400) Neutrophils (%) (Auto) 64 % (31-73) 88 % (31-73) Lymphocytes (%) (Auto) 26 % (24-48) 8 % (24-48) Monocytes (%) (Auto) 7 % (0-9) 4 % (0-9) Eosinophils (%) (Auto) 3 % (0-3) 0 % (0-3) Basophils (%) (Auto) 1 % (0-3) 0 % (0-3) Neutrophils # (Auto) 5.5 x10^3uL (1.8-7.7) 9.1 x10^3uL (1.8-7.7) Lymphocytes # (Auto) 2.2 x10^3/uL (1.0-4.8) 0.8 x10^3/uL (1.0-4.8) Monocytes # (Auto) 0.6 x10^3/uL (0.0-1.1) 0.4 x10^3/uL (0.0-1.1) Eosinophils # (Auto) 0.2 x10^3/uL (0.0-0.7) 0.0 x10^3/uL (0.0-0.7) Basophils # (Auto) 0.1 x10^3/uL (0.0-0.2) 0.0 x10^3/uL (0.0-0.2) Prothrombin Time 9.9 SEC (9.4-11.4) Prothromb Time International Ratio 1.0 (0.9-1.1) Activated Partial Thromboplast Time 27 SEC (23-33) D-Dimer (Jemma) 0.30 mg/L (0.00-0.50) Urine Collection Type Unknown Urine Color Yellow Urine Clarity Hazy Urine pH 6.0 Urine Specific [place] <=1.005 Urine Protein Neg (NEG-TRACE) Urine Glucose (UA) Neg mg/dL (NEG) Urine Ketones (Stick) Neg mg/dL (NEG) Urine Blood Trace (NEG) Urine Nitrite Neg (NEG) Urine Bilirubin Neg (NEG) Urine Urobilinogen Dipstick 0.2 mg/dL (0.2 mg/dL) Urine Leukocyte Esterase Trace (NEG) Urine RBC Rare /HPF (0-2) Urine WBC Rare /HPF (0-4) Urine Squamous Epithelial Cells None /LPF Urine Bacteria 0 /HPF (0-FEW) Sodium Level 139 mmol/L (136-145) 140 mmol/L (136-145) Potassium Level 3.6 mmol/L (3.5-5.1) 3.9 mmol/L (3.5-5.1) Chloride Level 103 mmol/L (98-107) 104 mmol/L (98-107) Carbon Dioxide Level 27 mmol/L (21-32) 25 mmol/L (21-32) Anion Gap 9 (6-14) 11 (6-14) Blood Urea Nitrogen 13 mg/dL (7-20) 15 mg/dL (7-20) Creatinine 0.7 mg/dL (0.6-1.0) 0.9 mg/dL (0.6-1.0) Estimated GFR (Cockcroft-Gault) 85.9 64.3 Glucose Level 85 mg/dL (70-99) 201 mg/dL (70-99) Calcium Level 8.6 mg/dL (8.5-10.1) 8.7 mg/dL (8.5-10.1) Magnesium Level 2.3 mg/dL (1.8-2.4) Total Bilirubin 0.3 mg/dL (0.2-1.0) Direct Bilirubin 0.1 mg/dL (0.0-0.2) Aspartate Amino Transf (AST/SGOT) 13 U/L (15-37) Alanine Aminotransferase (ALT/SGPT) 17 U/L (14-59) Alkaline Phosphatase 110 U/L (46-116) Creatine Kinase 86 U/L (26-192) Troponin I Quantitative 0.073 ng/mL (0-0.055) 0.089 ng/mL (0-0.055) 0.072 ng/mL (0-0.055) YH-Jzz-R-Type Natriuretic Peptide 543 pg/mL (0-124) Total Protein 7.1 g/dL (6.4-8.2) Albumin 3.2 g/dL (3.4-5.0) Lipase 218 U/L (73-393) Urine Opiates Screen Neg (NEG) Urine Methadone Screen Neg (NEG) Urine Barbiturates Neg (NEG) Urine Phencyclidine Screen Neg (NEG) Urine Amphetamine/Methamphetamine Neg (NEG) Urine Benzodiazepines Screen Neg (NEG) Urine Cocaine Screen Neg (NEG) Urine Cannabinoids Screen Neg (NEG) Urine Ethyl Alcohol Neg (NEG) Influenza Type A (Rapid) Negative (NEGATIVE) Influenza Type B (Rapid) Negative (NEGATIVE) Images CXR Impression: No active disease. EKG sinus rhythm, no acute ischemic changes Assessment/Plan 1. Elevated troponin in the setting of acute bronchitis and uncontrolled hypertension with recent normal MPI and echo. No chest pain. Likely demand mediated. Check lipids. continue RF reduction and follow up outpatient when current respiratory issues resolved. 2. acute bronchitis - 6 minute walk to determine oxygen need. Supportive care. Otherwise as per PCP 3. hypertension - mildly elevated trop during last admission with accelerated hypertension. blood pressure normalized prior to discharge with control of discomfort. In light of mild LVH will suggest low dose ARB for improved pressure control and diastolic dysfunction. 4. tobaccoism - cessation encouraged. CAMRYN IZQUIERDO [employer] Mar 29, 2018 09:57
[2018-03-29 10:50] VITALS: BP 133/63
[2018-03-29] MEDS ORDERED: LOSARTAN 25 MG TABLET. PO SCH (12:30)
[2018-03-29 15:45] VITALS: BP 165/73
--- NOTE | 2018-03-29 16:53 | HP ---
ADMIT DATE: 03/28/2018 HISTORY OF PRESENT ILLNESS: The patient is a 57-year-old female patient who came to the Emergency Room with a complaint of cough and intermittent wheezing that has been going on for almost a month now. She apparently was investigated in the Emergency Room and apparently her cardiac enzymes were noted to be slightly elevated. The patient did complain of wheezing and cough that is productive with clear sputum. She denied any chest pain or shortness of breath. Denied any decrease in functional capacity. She denied any palpitation, lightheadedness or syncope. Her first set of cardiac enzyme was slightly elevated at 0.073, however, her EKG showed that she was in sinus bradycardia with a heart rate of [address] segment elevation myocardial infarction and therefore, the patient was admitted with chest pain to rule out myocardial infarction. We do 2 more sets of cardiac enzyme and to consult the cardiology team. PAST MEDICAL HISTORY: Hyperlipidemia, gastroesophageal reflux disease, questionable chronic bronchitis versus COPD. PAST SURGICAL HISTORY: Significant for hemorrhoidectomy and right thumb trigger finger surgery. ALLERGIES: She has no known drug allergies. MEDICATIONS: She is currently on following medications: She is on atorvastatin calcium 20 mg at bedtime, oxycodone/APAP 1 tablet 4 times a day as needed, sertraline 200 mg once a day, omeprazole 20 mg once a day. FAMILY HISTORY: She has 2 sisters who are younger and seemingly healthy. Her father is alive at the age of 80 and he is known to have COPD and hypertension. Mother is alive at age of 80. SOCIAL HISTORY: She is , has an adopted daughter. She does smokes one-half to 2 packs per day. She does not drink alcohol or recreational drugs. 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 REVIEW OF SYSTEMS: As per history of present illness. PHYSICAL EXAMINATION: GENERAL: On arrival to the Emergency Room, she looked well and was clearly in no apparent respiratory distress. There was no pallor, jaundice, cyanosis, or thyromegaly. No jugular venous distension. No limb edema. VITAL SIGNS: Her heart rate was 74, blood pressure 148/77, temperature was 97.5, respiratory rate was 18 and oxygen saturation was 93% on room air. HEAD, EYES, NOSE AND THROAT: Showed normocephalic, atraumatic. NECK: Supple. HEART: Showed normal first and second heart sounds. No gallop, rub or murmur. CHEST: Clear to auscultation. No crepitation or rhonchi. ABDOMEN: Scaphoid, soft, nontender. NEUROLOGIC: She was awake, alert, responding appropriately. Cranial nerves intact. EXTREMITIES: She moves extremities without difficulty. She ambulates without assistance or assistive devices. LABORATORY DATA: Lab work on admission showed a serum sodium of 139, potassium 3.6, chloride 103, bicarbonate 27, anion gap of 9, BUN 13, creatinine was 0.7, estimated GFR was 86 mL per minute. Her glucose 85, calcium was 8.6, magnesium was 2.3. Total bilirubin, AST, ALT, alkaline phosphatase were normal. Her beta natriuretic peptide was 543. Total protein was 7.1, albumin 3.2. Her white cell count was 8600, hemoglobin 13, hematocrit 41, MCV 80, and platelet count of 255,000. Her prothrombin time was 9.9, INR of 1, aPTT was 27 and D-dimer was 0.3. Urinalysis was unremarkable. Toxic screen was essentially negative. Her chest x-ray showed that there is borderline hyperinflation evident, no pneumothorax. Old left rib fracture is present. Her first set of troponin was less than 0.073. PLAN: The patient was admitted to do 2 more sets of cardiac enzymes, check her fasting lipid profile and also consult the cardiology team. GLEN LLANES MD DR: BRENNEN/delfino JOB#: [id number] / [id number]
--- NOTE | 2018-03-29 17:29 | DS ---
DATE OF DISCHARGE: 03/29/2018 HOSPITAL COURSE: The patient is a 57-year-old female patient who was admitted with recurrent bouts of cough with scanty whitish sputum that has been going on for almost 4 weeks now. On evaluation in the Emergency Room, her troponin was found to be slightly elevated. The patient was admitted and has 2 more sets of cardiac enzymes as well as slightly elevated. She was seen by the Cardiology team and it transpired. The patient has had again an echocardiogram on 08/29/2017, which showed that her left ventricular systolic function is normal with a normal ejection fraction of 55-60%. She has mild concentric left ventricular hypertrophy, but no significant aortic valvular stenosis and no significant aortic regurgitation. She has had stress test done on 08/30/2017, which showed no evidence of EKG changes. Her stress testing was normal, perfusion at stress and rest. She has low risk study and ejection fraction of more than 60%. Therefore, she was seen in consultation by the Cardiology team who recommended that the patient can be discharged safely to follow with her primary care physician. The patient was counseled about smoking and was given in fact a prescription for Chantix to assist her with the process. PHYSICAL EXAMINATION: GENERAL: When I saw her today, she was sitting on the edge of bed comfortably, in no apparent distress. VITAL SIGNS: Her heart rate was 80, blood pressure 165/73, temperature was 98.1, respiratory rate was 20, and oxygen saturation was 94%. HEAD, EYES, EARS, NOSE AND THROAT: Showed normocephalic, atraumatic. NECK: Supple. HEART: Showed normal first and second sounds. No gallop, rub or murmur. CHEST: Clear to auscultation. No crepitation or rhonchi. ABDOMEN: Distended, soft, nontender. No guarding or rigidity. No organomegaly. Hernial orifice intact. Bowel sounds normal. NEUROLOGIC: She was awake, alert, responding appropriately. All cranial nerves are intact. EXTREMITIES: She moves extremities without difficulty. She ambulates without assistance or assistive devices. LABORATORY DATA: This morning showed serum sodium 140, potassium 3.9, chloride 104, bicarbonate 25, anion gap of 11, BUN 15, creatinine 0.9. Her white cell count was 10,000, hemoglobin 13, hematocrit 40, MCV 80 and platelet count of 222,000. DISCHARGE MEDICATIONS: The patient was discharged home to continue on atorvastatin calcium 20 mg at bedtime, omeprazole 20 mg once a day, sertraline 200 mg once a day and oxycodone/APAP 5/325 one tablet 4 times a day. FINAL DISCHARGE DIAGNOSES: Elevated cardiac enzyme with normal echo and stress test 6 months ago, hyperlipidemia, hypertension, gastroesophageal reflux disease. The patient was counseled about cigarette smoking, advised to quit, and was offered a prescription for Chantix. GLEN LLANES MD DR: BRENNEN/delfino JOB#: [id number] / [id number]
== END 2018-03-29 16:27 | disposition home or self-care (01) ==
LOC: ER 17:38 → INTOOBSV 21:15 → 1 SOUTH 21:15
PROVIDERS: ADMIT Internal Medicine; ATTEND Internal Medicine
DX: R74.0 Nonspecific elevation of levels of transaminase and lactic acid dehydrogenase [LDH] (principal); E78.5 Hyperlipidemia, unspecified; E78.00 Pure hypercholesterolemia, unspecified; F17.210 Nicotine dependence, cigarettes, uncomplicated; J20.9 Acute bronchitis, unspecified; J44.0 Chronic obstructive pulmonary disease with (acute) lower respiratory infection; K21.9 Gastro-esophageal reflux disease without esophagitis; Z82.49 Family history of ischemic heart disease and other diseases of the circulatory system; Z82.5 Family history of asthma and other chronic lower respiratory diseases; Z79.899 Other long term (current) drug therapy
CPT/HCPCS: 36415; 71046; 80048; 80076; 80307; 81001; 82550; 83690; 83735; 83880; 84443; 84484; 85025; 85379; 85610; 85730; 87040; 87086; 87804; 93005; 94640; 96365; 96372; 96375; 99284; G0238; G0378; J0456; J0696; J1650; J2405; J2930; J7613; J7620; G0379; 99285-25